=== PATIENT | female | born 1970 | race Caucasian/White ===

== ENCOUNTER → 2019-04-03 18:18 | Outpatient (CLI) | payer BC, SELFPAY ==
--- NOTE | ~2019-04-03 | MM_ITS ---
EXAMINATION: MM screening [place] BI w allison HISTORY: Screening mammogram TECHNIQUE: Craniocaudal and mediolateral oblique 3-D tomosynthesis images were obtained and synthetic 2-D images were generated. CAD analysis was submitted and interpreted. COMPARISON: 09/20/2017 bilateral digital screening mammogram 09/21/2016 diagnostic left digital mammogram and limited left breast ultrasound 09/04/2016, 08/30/2015 bilateral digital screening mammogram examinations BREAST PARENCHYMAL COMPOSITION: There are scattered areas of fibroglandular density. FINDINGS: There is no evidence of suspicious mass, calcification, or architectural distortion to sugg est malignancy in either breast. There has been no suspicious interval change. IMPRESSION: 1. No mammographic evidence of malignancy. 2. Recommend routine screening mammography in one year. BI-RADS Category 1: Negative Reviewed, dictated and finalized at location A. PORTFOLIO MANAGER
== END ==
PROVIDERS: Visit Provider Obstetrics & Gynecology
DX: Z12.31 Encounter for screening mammogram for malignant neoplasm of breast (principal)
CPT/HCPCS: 77063; 77067

== ENCOUNTER 2019-10-09 06:50 | Emergency (ER) | payer BC, SELFPAY ==
--- NOTE | ~2019-10-09 | XR_ITS ---
EXAMINATION: XR chest 1V portable INDICATION: Shortness of breath, COVID 19 positive. TECHNIQUE: Portable AP chest at 0744 hours COMPARISON: None available FINDINGS: There are minimal airspace opacities of the left lung base. No pleural effusion or pneumoth orax is identified. The cardiomediastinal silhouette is normal. IMPRESSION: 1. Minimal left basilar airspace opacity, consistent with history of COVID 19 pneumonia. Reviewed, dictated and finalized at location A. IMPRESSION: 1. Minimal left basilar airspace opacity, consistent with history of COVID 19 p neumonia.
[2019-10-09 06:59] VITALS: BP 142/107; PULSE 91; RESP 16; TEMP 37.2; O2SAT 93
[2019-10-09 07:01] VITALS: PULSE 91
--- NOTE | 2019-10-09 07:27 | ECG_ITS ---
Measurements Intervals [place] Rate: 87 P: 22 OK: 151 QRS: 17 QRSD: 93 T: 30 QT: 367 QTc: 443 Interpretive Statements SINUS RHYTHM NONSPECIFIC T-WAVE ABNORMALITY- INFERIOR LEADS BORDERLINE ECG Electronically Signed On 10-09-2019 8:05:53 CDT by Carlos Cloud D.O.
--- NOTE | 2019-10-09 07:53 | PC.NURSE ---
Resp in room.
[2019-10-09 07:54] VITALS: BP 124/94; PULSE 96; RESP 22; O2SAT 100
[2019-10-09 07:58] LABS: Alveolar/Arterial O2 Gradient 26.2 mmHg; Base Excess ABG 2.2 mEq/l (+/-2.0); Carboxyhemoglobin 0.4 % THb (0-2.0); Fractional Inspired Oxygen 21 %; HCO3 ABG 24.2 mEq/l (22.0-26.0); Methemoglobin ABG 0.1 %THb (0-1.5); Oxygen Content ABG 18.9 %vol (16.0-22.0); Oxygen Saturation ABG 97.5 % (95.0-100.0); Oxyhemoglobin 96.4 % THb (90.0-100.0); PCO2 ABG 30.3 mmHg (35.0-45.0); PO2 ABG 87.2 mmHg (80.0-100.0); PO2 FiO2 Ratio Arterial Blood 4.15 %; Reduced Hemoglobin 3.1 %THb (0-5.0); Total Hemoglobin 13.9 g/dL (12.0-18.0)
[2019-10-09 07:59] LABS: Device ROOM AIR; Modified Allen's Test Pass; Site Drawn RIGHT RADIAL; pH ABG 7.521 (7.350-7.450)
[2019-10-09 08:15] LABS: Eosinophils Percent Auto 0.3 % (0-4.4); Hematocrit 39.1 % (37.0-47.0); Hemoglobin 13.4 g/dL (12.0-15.0); Immature Granulocyte Absolute 0.01 K/mm3 (0.00-0.031); Immature Granulocyte Percent A 0.3 % (0-0.5); Lymphocytes Absolute Auto 1.33 K/mm3 (0.9-3.2); Lymphocytes Percent Auto 33.8 % (18.3-44.2); Mean Corpuscular HGB Conc 34.3 g/dl (32-36); Mean Corpuscular Hemoglobin 31.8 pg (26-34); Mean Corpuscular Volume 92.7 fl (80-100); Mean Platelet Volume 10.6 fl (7.4-10.4); Monocytes Absolute Auto 0.3 K/mm3 (0.1-0.6); Monocytes Percent Auto 7.1 % (2.6-8.5); Neutrophils Absolute Auto 2.3 K/mm3 (1.3-6.7); Neutrophils Percent Auto 58.5 % (45.5-73.1); Platelet Count Result 190 k/mm3 (150-375); Red Blood Count 4.22 M/mm3 (4.2-5.4); Red Cell Distribution Width 13.4 % (11.5-14.5); White Blood Count 3.9 K/mm3 (4.5-10.0)
[2019-10-09 08:27] LABS: INR 0.9
[2019-10-09 08:28] LABS: Partial Thromboplastin Time 27.5 SECONDS (22.3-36.8)
--- NOTE | 2019-10-09 08:28 | ED.SOB ---
HPI - SOB/Dyspnea General Chief Complaint: Shortness of Breath/Dyspnea Stated Complaint: SOB, COVID+ Time Seen by Provider: 10/09/19 07:03 Source: patient Mode of arrival: ambulatory Limitations: no limitations History of Present Illness HPI Narrative: This patient is a 49 year old with history of hypertension, anxiety who presents for evaluation shortness of breath. Patient was tested for COVID on Tuesday for complaint of a few days of fever and fatigue. Her results have returned as positive and patient states last night she developed shortness of breath. She states she could not sleep last night because she was afraid she would lay down and stop breath. She denies shortness of breath today. She denies nausea, vomiting, diarrhea, chest pain, sore throat or runny nose. Her last fever was yesterday. She also reports a mild cough. Her main complaint is that she needs something for anxiety because she has not taken her effexor or abilify in 2 days. MD elicited complaint: shortness of breath Related Data Home Medications Medication Instructions Recorded Confirmed fesoterodine [Toviaz] 8 mg PO DAILY 02/04/19 10/03/19 venlafaxine 300 mg PO DAILY 02/04/19 10/03/19 aripiprazole 10 mg tablet 10 mg PO DAILY 08/28/19 10/03/19 Allergies Allergy/AdvReac Type Severity Reaction Status Date / Time No Known Allergies Allergy Verified 10/09/19 08:36 Review of Systems Review of Systems: All systems reviewed & are unremarkable except as noted in HPI and below Constitutional: Constitutional: Denies chills and Reports fever(s) ENT: Denies nasal congestion and Denies sore throat Respiratory: Respiratory: Reports cough, Reports dyspnea and Denies wheezing Gastrointestinal: Gastrointestinal: Denies abdominal pain, Denies nausea and Denies vomiting [facility] Past Medical History Medical History Allergies Colitis 03/2018 Cyst of skin Depression Hematochezia Hypertension Surgical History Surgical History H/O section 2003 H/O elbow surgery Right History of radical hysterectomy 09/2016 Family History Family History (Updated 10/03/19 @ 08:00 by Tracey Elder [facility]) Mother Hypertension Cerebrovascular accident Carcinoma of colon Father Malignant neoplasm of prostate Social History Social History (Updated 10/03/19 @ 08:00 by Tracey Elder [facility]) Smoking status: Never smoker Alcohol intake: current Exam Narrative: Exam Narrative: GENERAL: Well-appearing, well-nourished, and in no acute distress. HEAD: Normocephalic, atraumatic EYES: PERRLA and EOMI, conjunctiva clear without discharge EARS: TM's clear bilaterally without erythema or dullness NOSE: Nares clear, no rhinorrhea or epistaxis THROAT:Mucous membranes moist, Oropharynx normal without erythema, exudate, peritonsillar swelling or fluctuance NECK: Supple, without lymphadenopathy or mass RESPIRATORY: No respiratory distress, Airway patent, Respirations non-labored, Clear to auscultation without rales, rhonchi or wheeze HEART: Regular rate and rhythm. No murmur heard. Normal peripheral pulses. ABDOMEN: Soft, nontender, nondistended, normal active bowel sounds. No masses. No rebound or guarding, No organomegaly. EXTREMITIES: No edema, normal strength with full range of motion. SKIN: Warm, dry, normal color without rash NEURO: Alert and oriented x3. CN 2-12 grossly intact. No focal deficits. PSYCH: Normal mood and affect. Course Reevaluation(s) Reevaluation #1: I have discussed with patient that oxygen is normal without oxygen. She will be discharged with antibiotics. She was given return precautions. Date: 10/09/19 Time: 09:01 Consultations Consultation #1: I discussed with Dr. lundberg and he is agreeable to treatment plan. Date: 10/09/19 Time: 09:01 Vital Signs Vital signs: Vital Signs Temperature 98.9 F
[2019-10-09 08:32] LABS: Alanine Aminotransferase 35 U/L (4-35); Albumin Level 3.9 g/dL (3.5-5.1); Alkaline Phosphatase 79 U/L (38-126); Anion Gap 11.7 mmol/L (7-16); Aspartate Amino Transferase 39 U/L (14-36); Bilirubin,Total 0.4 mg/dL (0.2-1.3); Blood Urea Nitrogen 14 mg/dL (7-17); CRP 1.7 mg/dL (<1.0); Calcium 8.5 mg/dL (8.4-10.2); Carbon Dioxide 24 mmol/L (22-30); Chloride 104 mmol/L (98-107); Estimated CRCL calculation 113 ml/min; Estimated Glomerular Filt Rate > 60; Glucose 113 mg/dL (65-105); Lactate Dehydrogenase 528 U/L (313-618); Magnesium 1.5 mg/dL (1.6-2.3); Potassium 3.7 mmol/L (3.4-5.0); Sodium 136 mmol/L (137-145)
[2019-10-09 08:37] LABS: D Dimer 0.27 ug/mL (<0.48)
--- NOTE | 2019-10-09 08:48 | PC.NURSE ---
Called pharm and left VM for PO medication.
[2019-10-09] MEDS: hydrOXYzine pamoate 25 MG CAPSULE 50 MG PO (08:49)
[2019-10-09] MEDS: ARIPiprazole 10 MG TABLET PO (08:49)
[2019-10-09 09:23] VITALS: BP 142/98; PULSE 84; RESP 14; O2SAT 100
[2019-10-09 09:51] VITALS: BP 142/98; PULSE 84; RESP 17; O2SAT 100
== END 2019-10-09 09:28 | disposition home or self-care (01) ==
LOC: ANHED 09:14
PROVIDERS: Emergency Provider General Practice; PCP Internal Medicine
DX: U07.1 COVID-19 (principal); F41.9 Anxiety disorder, unspecified; F32.9 Major depressive disorder, single episode, unspecified; I10 Essential (primary) hypertension
CPT/HCPCS: 36415; 36600; 71045; 80053; 82375; 82728; 82805; 83050; 83615; 83735; 85025; 85380; 85610; 85730; 86140; 93005; 99283; A9270

== ENCOUNTER → 2020-06-10 12:36 | Outpatient (CLI) | payer BC, SELFPAY ==
--- NOTE | ~2020-06-10 | MM_ITS ---
EXAMINATION: MM screening [facility] BI w allison HISTORY: Screening mammogram TECHNIQUE: Craniocaudal and mediolateral oblique 3-D tomosynthesis images were obtained and synthetic 2-D images were generated. CAD analysis was submitted and interpreted. COMPARISON: 04/03/2019, 09/20/2017 bilateral digital screening mammogram examinations BREAST PARENCHYMAL COMPOSITION: There are scattered areas of fibroglandular density. FINDINGS: There is architectural distortion in the mid to upper outer right breast. Diagnostic right mammogram and right breast ultrasound examination are recommended. Otherwise no suspicious mass, architectural distortion, malignant calcification, skin thickening or r etraction of either breast is evident. IMPRESSION: 1. Architectural distortion, right breast 2. Diagnostic right mammogram and right breast ultrasound examination are recommended BI-RADS Category 0: Incomplete: Needs additional imaging evaluation. Reviewed, dictated and finalized at location A. IMPRESSION: 1. Architectural distortion, right breast 2. Diagnostic right mammogram and right breast ultrasound examination are recom mended BI-RADS Category 0: Incomplete: Needs additional imaging evaluation.
== END ==
PROVIDERS: PCP Internal Medicine; Visit Provider Obstetrics & Gynecology
DX: Z12.31 Encounter for screening mammogram for malignant neoplasm of breast (principal); R92.8 Other abnormal and inconclusive findings on diagnostic imaging of breast
CPT/HCPCS: 77063; 77067

== ENCOUNTER → 2020-07-02 07:48 | Outpatient (CLI) | payer BC, SELFPAY ==
--- NOTE | ~2020-07-02 | MMUS_ITS ---
EXAMINATION: MM diagnostic mammo unilat RT, US breast RT limited HISTORY: Architectural distortion reported in mid to upper outer right breast on 06/10/2020 screening m ammogram TECHNIQUE: Additional 3-D tomosynthesis images of the right breast were performed and synthetic 2-D i mages were generated. CAD analysis was submitted and interpreted. High resolution upper outer and low er-outer right breast ultrasound was performed. COMPARISON: 06/10/2020, 04/03/2019 bilateral digital screening mammogram examinations FINDINGS: MAMMOGRAPHIC FINDINGS: No reproducible mass lesion or architectural distortion is evident on these supplemental mammographic views. ULTRASOUND: There is a 2 x 4.4 x 4.9 mm sonolucency consistent with small cyst at 11:00 5 cm from the nipple. No other significant sonographic finding is noted in the upper outer or lower outer quadrants of the right breast. No suspicious mass lesion or shadowing. IMPRESSION: 1. No mammographic evidence of malignancy 2. Routine annual mammographic screening is recommended BI-RADS Category 2: Benign finding(s). Reviewed, dictated and finalized at location A. IMPRESSION: 1. No mammographic evidence of malignancy 2. Routine annual mammographic screening is recommended BI-RADS Category 2: Benign finding(s).
== END ==
PROVIDERS: PCP Internal Medicine; Visit Provider Obstetrics & Gynecology
DX: R92.8 Other abnormal and inconclusive findings on diagnostic imaging of breast (principal)
CPT/HCPCS: 76642; 77065

== ENCOUNTER 2021-01-19 00:03 | Day surgery (SDC) | payer BC, SELFPAY ==
[2020-12-01 11:49] VITALS: BMI 25.9
[2021-01-05 13:59] VITALS: BMI 25.9
--- NOTE | 2021-01-19 07:14 | PM.HPGS ---
History of Present Illness History of Present Illness Consent: Risks, benefits, and alternatives have been discussed and questions answered. Patient agrees to proceed with procedure. Chief complaint: neoplasm screening Narrative: Maite Jones is a 50 year old female referred for colon cancer screening. Review of Systems Review of Systems: All systems reviewed & are unremarkable except as noted in HPI and below PMFSH Past Medical History Medical History Allergies Anxiety Chronic GERD Colitis 03/2018 Cyst of skin Depression Hematochezia Hypertension Surgical History Surgical History H/O section 2003 H/O elbow surgery Right History of radical hysterectomy 09/2016 Family History Family History Mother Hypertension Cerebrovascular accident Carcinoma of colon Father Malignant neoplasm of prostate Social History Social History Social History: Caffeine-none Smoking status: Never smoker Alcohol intake: current Drinks per week: 2 Alcohol use details: occasional Substance use: never Substance use type: does not use Living arrangements: with family Spiritual care concerns: No Meds Home Medications and Allergies Home Medications Medication Instructions Recorded Confirmed Type fesoterodine [Toviaz] 8 mg PO DAILY 02/04/19 01/19/21 History aripiprazole 10 mg tablet 10 mg PO DAILY 08/28/19 01/19/21 History omeprazole 40 mg capsule,delayed 40 mg PO DAILY #90 cap 09/03/19 01/19/21 Rx release bupropion HCl 300 mg 24 hr tablet, 300 mg PO QAM 10/01/20 01/19/21 History extended release phentermine 37.5 mg tablet 37.5 mg PO DAILY #30 tablet 10/01/20 01/19/21 Rx hydrochlorothiazide 12.5 mg tablet 12.5 mg PO DAILY #90 tablet 12/11/20 01/19/21 Rx lisinopril 20 mg tablet 20 mg PO DAILY #90 tablet 12/11/20 01/19/21 Rx metoprolol tartrate 50 mg tablet 50 mg PO DAILY #90 tablet 12/11/20 01/19/21 Rx Allergies Allergy/AdvReac Type Severity Reaction Status Date / Time No Known Allergies Allergy Verified 01/19/21 09:35 Exam Const: General: alert Orientation/consciousness: patient oriented x3 Resp: Auscultation: clear to auscultation bilaterally Cardio: Rhythm: regular rhythm GI: GI Palp: Yes Soft to palpation and No Tenderness to palpation present (GI) Neuro: General: patient oriented x3 Assessment and Plan Assessment and plan (1) Screening for colon cancer: Code(s): Z12.11 - Encounter for screening for malignant neoplasm of colon Status: Acute Assessment and Plan: Colonoscopy with possible biopsy or polypectomy or cautery or injection of substances.
--- NOTE | 2021-01-19 08:38 | P.PNAN_ITS ---
Anes - Initial Pre Proc Eval Procedure: Operation Date: 01/19/21 10:30 Proposed Procedures p Screening Colonoscopy - Moise Quispe MD Date/Time: 01/19/21 08:38 Surgeon: Moise Quispe MD Pre Op Diagnosis: neoplasm screening Patient Data Age: 50 Gender: F Height: 1.7 m Weight: 75 kg Allergies Allergy/AdvReac Type Severity Reaction Status Date / Time No Known Allergies Allergy Verified 01/19/21 09:35 Home Medications Medication Instructions Recorded Confirmed Type fesoterodine [Toviaz] 8 mg PO DAILY 02/04/19 01/19/21 History aripiprazole 10 mg tablet 10 mg PO DAILY 08/28/19 01/19/21 History omeprazole 40 mg capsule,delayed 40 mg PO DAILY #90 cap 09/03/19 01/19/21 Rx release bupropion HCl 300 mg 24 hr tablet, 300 mg PO QAM 10/01/20 01/19/21 History extended release phentermine 37.5 mg tablet 37.5 mg PO DAILY #30 tablet 10/01/20 01/19/21 Rx hydrochlorothiazide 12.5 mg tablet 12.5 mg PO DAILY #90 tablet 12/11/20 01/19/21 Rx lisinopril 20 mg tablet 20 mg PO DAILY #90 tablet 12/11/20 01/19/21 Rx metoprolol tartrate 50 mg tablet 50 mg PO DAILY #90 tablet 12/11/20 01/19/21 Rx Patient hx anesthesia problems: none Family hx anesthesia problems: none Results Review: All pre-operative results and documents have been reviewed as part of the pre-operative evaluation. [facility] Past Medical History Medical History Allergies Anxiety Chronic GERD Colitis 03/2018 Cyst of skin Depression Hematochezia Hypertension Surgical History Surgical History H/O section 2003 H/O elbow surgery Right History of radical hysterectomy 09/2016 Family History Family History Mother Hypertension Cerebrovascular accident Carcinoma of colon Father Malignant neoplasm of prostate Social History Social History Social History: Caffeine-none Smoking status: Never smoker Alcohol intake: current Drinks per week: 2 Alcohol use details: occasional Substance use: never Substance use type: does not use Living arrangements: with family Spiritual care concerns: No Anes - Eval Final PreProcedure Day of Procedure 01/19/21 08:38 Patient weight: overweight Heart: regular rate and rhythm Lungs: clear to auscultation and normal air movement Airway: Mallampati scale class II Neurological: alert and oriented Last oral intake: >/= 8 hours ASA classification: II Emergent: no Anesthetic plan: proceed Anesthesia type and monitoring: general GIVS Results Review: All pre-operative results and documents have been reviewed as part of the pre-operative evaluation. Informed Consent: The patient's anesthetic plan and its attendant risks and benefits were discussed with the patient/family/POA. Questions were solicited and answers provided to the satisfaction of the patient/family/POA.
[2021-01-19 09:37] VITALS: BMI 29.8
[2021-01-19] MEDS: LACTATED RINGERS 1,000 ML 150 ML IV CONT (09:44)
[2021-01-19 09:45] VITALS: BP 115/76; PULSE 68; RESP 16; TEMP 36.7; O2SAT 98
[2021-01-19 10:42] VITALS: BP 101/66; PULSE 64; RESP 17; O2SAT 98
[2021-01-19 10:52] VITALS: BP 110/61; PULSE 68; RESP 16; O2SAT 100
[2021-01-19 11:02] VITALS: BP 110/66; PULSE 63; RESP 15; O2SAT 100
== END 2021-01-19 11:09 | disposition home or self-care (01) ==
PROVIDERS: PCP Internal Medicine; Visit Provider Internal Medicine Gastroenterology
PROC: 0DJD8ZZ Inspection of Lower Intestinal Tract, Via Natural or Artificial Opening Endoscopic (ICD-10-PCS; CPT 45378; principal; 2021-01-19 10:30)
DX: Z12.11 Encounter for screening for malignant neoplasm of colon (principal); K21.9 Gastro-esophageal reflux disease without esophagitis; I10 Essential (primary) hypertension; F41.8 Other specified anxiety disorders
CPT/HCPCS: 45378; J2704; J7120

== ENCOUNTER → 2021-10-06 07:22 | Outpatient (CLI) | payer BC, SELFPAY ==
--- NOTE | ~2021-10-06 | MM_ITS ---
EXAMINATION: MM screening [facility] BI w allison HISTORY: Screening TECHNIQUE: Craniocaudal and mediolateral oblique 3-D tomosynthesis images were obtained and synthetic 2-D images were generated. CAD analysis was submitted and interpreted. COMPARISON: Comparison to multiple prior studies sequentially, with oldest reviewed study dated 03/2016. BREAST PARENCHYMAL COMPOSITION: Breast composed of scattered areas of fibroglandular density FINDINGS: There are developing bilateral breast asymmetries in the lower outer quadrant of the right breast and upper outer quadrant of the left breast. IMPRESSION: 1. Developing bilateral breast asymmetries. 2. Additional mammographic views and possible breast ultrasound are recommended. BI-RADS Category 0: Incomplete: Needs additional imaging evaluation. Reviewed, dictated and finalized at location A. IMPRESSION: 1. Developing bilateral breast asymmetries. 2. Additional mammographic views and possible breast ultrasound are recommended . BI-RADS Category 0: Incomplete: Needs additional imaging evaluation.
== END ==
PROVIDERS: PCP Internal Medicine; Visit Provider Obstetrics & Gynecology
DX: Z12.31 Encounter for screening mammogram for malignant neoplasm of breast (principal); R92.8 Other abnormal and inconclusive findings on diagnostic imaging of breast
CPT/HCPCS: 77063; 77067

== ENCOUNTER 2021-10-15 08:50 | Outpatient (CLI) | payer BC, SELFPAY ==
--- NOTE | ~2021-10-15 | MM_ITS ---
EXAMINATION: MM diagnostic [facility] BI w allison HISTORY: Bilateral breast asymmetries on screening mammogram TECHNIQUE: Additional 3-D tomosynthesis images of the breasts were performed and synthetic 2-D images were generated. CAD analysis was submitted and interpreted. COMPARISON: 10/06/2021, 07/02/2020, 06/10/2020, 04/03/2019 FINDINGS: There is a return to baseline fibroglandular appearance with spot compression of the breast s in the areas questioned on screening mammogram. IMPRESSION: 1. No mammographic evidence of malignancy. 2. Recommend routine screening mammography in one year. BI-RADS Category 1: Negative Reviewed, dictated and finalized at location A.
== END 2021-10-15 08:51 ==
PROVIDERS: PCP Internal Medicine; Visit Provider Obstetrics & Gynecology
DX: R92.8 Other abnormal and inconclusive findings on diagnostic imaging of breast (principal)
CPT/HCPCS: 77062; 77066; G0279

== ENCOUNTER 2022-08-23 11:36 | Outpatient (CLI) | payer BC, SELFPAY ==
[2022-08-23 14:20] LABS: Basophils Percent Auto 0.4 % (0.2-1.2); Eosinophils Absolute Auto 0.1 K/mm3 (0-0.3); Eosinophils Percent Auto 1.1 % (0-4.4); Hematocrit 40.2 % (37.0-47.0); Hemoglobin 13.6 g/dL (12.0-15.0); Immature Granulocyte Absolute 0.03 K/mm3 (0.00-0.031); Immature Granulocyte Percent A 0.3 % (0-0.5); Lymphocytes Absolute Auto 2.59 K/mm3 (0.9-3.2); Lymphocytes Percent Auto 28.9 % (18.3-44.2); Mean Corpuscular HGB Conc 33.8 g/dl (32-36); Mean Corpuscular Hemoglobin 31.8 pg (26-34); Mean Corpuscular Volume 93.9 fl (80-100); Mean Platelet Volume 10.5 fl (7.4-10.4); Monocytes Absolute Auto 0.5 K/mm3 (0.1-0.6); Monocytes Percent Auto 5.5 % (2.6-8.5); Neutrophils Absolute Auto 5.7 K/mm3 (1.3-6.7); Neutrophils Percent Auto 63.8 % (45.5-73.1); Platelet Count Result 274 k/mm3 (150-375); Red Blood Count 4.28 M/mm3 (4.2-5.4); Red Cell Distribution Width 12.6 % (11.5-14.5)
[2022-08-23 15:41] LABS: Creatinine Urine 115.7 mg/dL
[2022-08-23 15:45] LABS: Microalbumin Urine Random 8.1 mg/L (0-16.7)
[2022-08-23 16:15] LABS: Alanine Aminotransferase 22 U/L (6-35); Albumin Level 3.9 g/dL (3.5-5.1); Alkaline Phosphatase 46 U/L (38-126); Anion Gap 3 mmol/L (8-16); Aspartate Amino Transferase 25 U/L (14-36); Blood Urea Nitrogen 12 mg/dL (7-17); Carbon Dioxide 32 mmol/L (22-30); Chloride 101 mmol/L (98-107); Cholesterol 152 mg/dL (0-200); Estimated Glomerular Filt Rate > 60; Glucose 89 mg/dL (65-110); HDL Direct 39 mg/dL; Potassium 4.4 mmol/L (3.4-5.0); Sodium 136 mmol/L (137-145); Triglycerides 176 mg/dL (<150)
[2022-08-23 16:26] LABS: LDL Cholesterol Direct 84 mg/dL
== END 2022-08-23 11:37 | disposition home or self-care (01) ==
LOC: ANHGOSHLAB 11:37
PROVIDERS: PCP Internal Medicine; Visit Provider Nurse Practitioner
DX: E55.9 Vitamin D deficiency, unspecified (principal); R53.83 Other fatigue; I10 Essential (primary) hypertension
CPT/HCPCS: 36415; 80053; 80061; 82043; 82306; 85025

== ENCOUNTER 2022-09-09 07:19 | Emergency (ER) | payer BC, SELFPAY ==
[2022-09-09] VITALS (10 sets, daily range): BP systolic 151–179; BP diastolic 70–91; PULSE 60–71; RESP 12–18; TEMP 36.6; O2SAT 97–100
--- NOTE | ~2022-09-09 | XR_ITS ---
EXAMINATION: XR chest 1V portable DATE: 09/09/2022 08:12 INDICATION: Hypertension TECHNIQUE: frontal view of the chest was obtained. COMPARISON: Chest radiograph dated 10/09/2019 FINDINGS: The lungs remain clear with no focal airspace opacities, pulmonary edema, pleural effusion or pneumot horax. The cardiomediastinal silhouette is normal. Visualized bones and soft tissues are unremarkable . IMPRESSION: 1. No acute cardiopulmonary disease. Reviewed, dictated and finalized at location L.
--- NOTE | 2022-09-09 07:29 | ECG_ITS ---
Measurements Intervals [place] Rate: 63 P: 23 RI: 159 QRS: 12 QRSD: 90 T: 17 QT: 418 QTc: 428 Interpretive Statements SINUS RHYTHM NORMAL ECG NO PREVIOUS ECG AVAILABLE FOR COMPARISON Electronically Signed On 09-09-2022 8:12:22 CDT by Carlos Cloud D.O.
--- NOTE | 2022-09-09 07:58 | ED.GENADULT ---
HPI - General Adult General Chief complaint: Recheck/Abnormal Lab/Rx Stated complaint: HTN Time Seen by Provider: 09/09/22 07:21 History of Present Illness HPI narrative: 52-year-old female with history of hypertension presenting to the emergency department for evaluation of elevated blood pressures. Patient states that her blood pressure typically runs around 130-140 systolic and yesterday it was running in the 160s. Patient did take her blood pressure medications this morning and states that her blood pressure was still running in the 160s. Patient states she does have some lower extremity edema and some associated lethargy. Patient states that she has been following a healthy diet and did not have Related Data Home Medications Medication Instructions Recorded Confirmed aripiprazole 15 mg tablet (Abilify) 15 mg PO HS 09/09/22 09/09/22 bupropion HCl 300 mg 24 hr tablet, 300 mg PO QAM 09/09/22 09/09/22 extended release (Wellbutrin XL) hydrochlorothiazide 12.5 mg tablet 12.5 mg PO DAILY 09/09/22 09/09/22 lisinopril 20 mg tablet 20 mg PO DAILY 09/09/22 09/09/22 metoprolol succinate 50 mg 50 mg PO DAILY 09/09/22 09/09/22 tablet,extended release 24 hr omeprazole 40 mg capsule,delayed 40 mg PO DAILY 09/09/22 09/09/22 release paroxetine HCl 10 mg tablet (Paxil) 10 mg PO QAM 09/09/22 09/09/22 solifenacin 10 mg tablet (Vesicare) 10 mg PO DAILY 09/09/22 09/09/22 Allergies Allergy/AdvReac Type Severity Reaction Status Date / Time No Known Allergies Allergy Verified 09/09/22 07:29 Review of Systems Review of Systems: All systems reviewed & are unremarkable except as noted in HPI and below Exam Narrative: APPEARANCE: Well appearing, no pain, no distress, well-nourished. HEAD: normocephalic, atraumatic. EYES: PERRLA/EOMI, conjunctivae clear. NOSE: Normal no drainage NECK: Supple. No adenopathy, no masses. RESPIRATORY: Airway patent, respirations nonlabored. Clear to auscultation bilaterally, no rales, rhonchi, wheezing. CARDIOVASCULAR: Regular rate and rhythm without murmurs rubs or gallops. ABDOMINAL: Soft, nontender, nondistended, normal bowel sounds MUSCULOSKELETAL: Moves all extremities. Strength/ROM intact, nonpitting edema, No calf tenderness. NEURO: Alert. Cranial nerves II through XII intact. Grossly intact SKIN: Warm, dry. Normal Color Course Course Emergency Course: 52-year-old female presented the ED for evaluation of hypertension. Patient did take her blood pressure medications this morning and her blood pressure did improve without further treatment in the ED. Patient was afebrile with no leukocytosis and a stable hemoglobin. Patient had no significant abnormalities on her CMP. Patient did have mild lower extremity edema that was nonpitting. Patient had a mildly elevated BNP of 319. Patient denied any urinary symptoms but patient did have leuk esterase nitrite positive urine with bacteria. Urine culture was ordered. Chest x-ray showed no acute cardiopulmonary abnormality. With patient's blood pressure improving during her stay in the ED and no other significant normalities. Patient was advised to follow a low-sodium diet and patient was treated with a dose of IV Lasix. Urine culture is pending. Patient was encouraged of close follow-up with her primary care physician. All questions and concerns were addressed. Patient was well-appearing at time of discharge. Vital Signs Vital signs: Vital Signs Temperature 97.9 F 09/09/22 07:23 Pulse Rate 67 09/09/22 07:23 Respiratory Rate 15 09/09/22 07:23 Blood Pressure 179/91 H 09/09/22 07:23 Pulse Oximetry 98 09/09/22 07:23 Oxygen Delivery Room Air 09/09/22 07:23 Temperature 97.9 F 09/09/22 07:23 Pulse Rate 60 09/09/22 09:26 Respiratory Rate 15 09/09/22 09:26 Blood Pressure 164/70 H 09/09/22 09:26 Pulse Oximetry 100 09/09/22 09:26 Oxygen Delivery Room Air 09/09/22 07:23 Medical Decision Making Differe
[2022-09-09 08:05] LABS: Basophils Percent Auto 0.6 % (0.2-1.2); Eosinophils Absolute Auto 0.1 K/mm3 (0-0.3); Eosinophils Percent Auto 1.9 % (0-4.4); Hematocrit 35.8 % (37.0-47.0); Hemoglobin 12.4 g/dL (12.0-15.0); Immature Granulocyte Absolute 0.02 K/mm3 (0.00-0.031); Immature Granulocyte Percent A 0.3 % (0-0.5); Lymphocytes Percent Auto 24.3 % (18.3-44.2); Mean Corpuscular HGB Conc 34.6 g/dl (32-36); Mean Corpuscular Hemoglobin 32.5 pg (26-34); Mean Corpuscular Volume 93.7 fl (80-100); Mean Platelet Volume 10.1 fl (7.4-10.4); Monocytes Absolute Auto 0.4 K/mm3 (0.1-0.6); Monocytes Percent Auto 5.9 % (2.6-8.5); Neutrophils Absolute Auto 4.7 K/mm3 (1.3-6.7); Platelet Count Result 255 k/mm3 (150-375); Red Blood Count 3.82 M/mm3 (4.2-5.4); Red Cell Distribution Width 13.5 % (11.5-14.5)
[2022-09-09 08:13] LABS: Alanine Aminotransferase 22 U/L (6-35); Albumin Level 3.8 g/dL (3.5-5.1); Alkaline Phosphatase 45 U/L (38-126); Anion Gap 6 mmol/L (8-16); Aspartate Amino Transferase 20 U/L (14-36); Bilirubin,Total 0.9 mg/dL (0.2-1.3); Blood Urea Nitrogen 10 mg/dL (7-17); Calcium 8.7 mg/dL (8.4-10.2); Carbon Dioxide 28 mmol/L (22-30); Chloride 102 mmol/L (98-107); Estimated CRCL calculation 95 ml/min; Estimated Glomerular Filt Rate > 60; Glucose 100 mg/dL (65-110); Potassium 3.8 mmol/L (3.4-5.0); Sodium 136 mmol/L (137-145)
[2022-09-09 08:22] LABS: NT Pro B Type Natriuretic Pept 319 pg/mL (19.9-100)
[2022-09-09 08:51] LABS: Appearance Urine Clear (Clear); Bacteria Urine 4+ /hpf; Bilirubin Urine Negative (Negative); Blood Urine Negative (Negative); Color Urine Yellow (Yellow); Glucose Urine UA Negative (Negative); Ketones Urine Negative (Negative); Leukocyte Esterase Ur 1+ LEU/UL (Negative); Nitrate Urine Positive (Negative); Non Pathogenic Casts 0-2; Protein Urine Negative (Negative); RBC Urine 0-2 /hpf (0-2); Specific Grav Ur 1.009 (1.001-1.035); Squamous Epithelial Cell Urine None seen /hpf (Few)
[2022-09-09 08:53] LABS: Add Urine Microscopic? YES
[2022-09-09] MEDS: FUROSEMIDE INJ 40 MG/4 ML VIAL IV PUSH (09:20)
== END 2022-09-09 09:27 | disposition home or self-care (01) ==
PROVIDERS: Emergency Provider Emergency Medicine; PCP Internal Medicine
DX: I10 Essential (primary) hypertension (principal); R60.9 Edema, unspecified
CPT/HCPCS: 36415; 71045; 80053; 81001; 83880; 85025; 87077; 87086; 87186; 93005; 96374; 99284; J1940

== ENCOUNTER → 2023-01-20 14:39 | Outpatient (CLI) | payer OTHER, SELFPAY ==
--- NOTE | ~2023-01-20 | MM_ITS ---
EXAMINATION: MM screening [place] BI w allison HISTORY: Screening mammogram TECHNIQUE: Craniocaudal and mediolateral oblique 3-D tomosynthesis images were obtained and synthetic 2-D images were generated. CAD analysis was submitted and interpreted. COMPARISON: 10/15/2021, 10/26/2021, 07/02/2020, 06/10/2020 BREAST PARENCHYMAL COMPOSITION: There are scattered areas of fibroglandular density. FINDINGS: No suspicious mass, calcification, or architectural distortion are identified in either kaz ast to suggest malignancy. There has been no suspicious interval change. IMPRESSION: 1. No mammographic evidence of malignancy. 2. Recommend routine screening mammography in one year. BI-RADS Category 1: Negative Reviewed, dictated and finalized at location A. ER ROOM SUPERVISOR
== END ==
PROVIDERS: PCP Obstetrics & Gynecology; Visit Provider Obstetrics & Gynecology
DX: Z12.31 Encounter for screening mammogram for malignant neoplasm of breast (principal)
CPT/HCPCS: 77063; 77067

== ENCOUNTER 2023-12-16 16:11 | Emergency (ER) | payer OTHER, SELFPAY ==
[2023-12-16 16:23] VITALS: BP 114/70; PULSE 64; RESP 18; TEMP 36.6; O2SAT 100
--- NOTE | 2023-12-16 16:24 | ED.URI ---
HPI - URI/Sore Throat General Chief Complaint: Upper Respiratory Infection Stated Complaint: sore throat Time Seen by Provider: 12/16/23 16:24 Source: patient, RN notes reviewed and old records reviewed Mode of arrival: ambulatory Limitations: no limitations History of Present Illness HPI Narrative: patient presents with complaints of left-sided ear and throat pain. She reports symptoms have been present for almost 1 week. She has been taking Tylenol for her symptoms along with some Sudafed. She does report some associated runny nose and cough. She denies any fever, chills, sweats. She denies any injury or trauma. Denies any dental pain. Voices no other concerns or complaints at this time. Is not having any difficulty swallowing. No drooling or stridor noted Related Data Home Medications Medication Instructions Recorded Confirmed aripiprazole 10 mg tablet (Abilify) 10 mg PO DAILY 08/28/19 12/16/23 bupropion HCl 300 mg 24 hr tablet, 300 mg PO QAM 10/01/20 12/16/23 extended release (Wellbutrin XL) paroxetine HCl 10 mg tablet 10 mg PO DAILY 08/23/22 12/16/23 Allergies Allergy/AdvReac Type Severity Reaction Status Date / Time No Known Allergies Allergy Verified 12/16/23 16:34 Review of Systems Review of Systems: All systems reviewed & are unremarkable except as noted in HPI and below Constitutional: Constitutional: Reports no additional constitutional complaints ENT: Reports system reviewed and no additional complaints, except as documented, Reports as per HPI, Reports otalgia, Reports nasal discharge, Denies sinus pain, Denies sinus pressure and Reports sore throat Cardiovascular: Cardiovascular: Reports no additional cardiovascular complaints Respiratory: Respiratory: Reports no additional respiratory complaints and Reports cough Gastrointestinal: Gastrointestinal: Reports no additional gastrointestinal complaints [facility] Past Medical History Medical History Allergies Anxiety Chronic GERD Colitis 03/2018 Cyst of skin Depression Hematochezia Hypertension Surgical History Surgical History H/O section 2003 H/O elbow surgery Right History of radical hysterectomy 09/2016 Family History Family History Mother Hypertension Cerebrovascular accident Carcinoma of colon Father Malignant neoplasm of prostate Social History Social History Social History: Caffeine-none Smoking status: Never smoker Alcohol intake: current Drinks per week: 2 Alcohol use details: occasional Substance use: never Substance use type: does not use Lack of Transportation: No Lack of Food: Never True Current Housing: I Have Housing Concerned About Future Housing: No Difficulty Paying Gas/Electric Bills: No Difficulty Paying for Meds: No Currently Unemployed: No Education: High School Diploma/GED Difficulty w/ Childcare or Family Care: No Living arrangements: with family Spiritual care concerns: No Comments At the time of my signature, I reviewed and agree with the nursing past medical, surgical, social, and family history. There is no relevant family history pertinent to the patient complaint. Exam Const: General: cooperative, no acute distress, alert and awake Orientation/consciousness: oriented to person, oriented to place and oriented to time HENMT: Head: normal to inspection Ears: TM's normal bilaterally Mouth: Yes moist mucous membranes Throat: posterior oropharynx abnormal erythema Neck: Lymphatic: lymphadenopathy left anterior cervical single, large and tender Resp: Effort & Inspection: normal respiratory effort and able to speak in complete sentences Auscultation: clear to auscultation bilaterally, no crackles, no rales, no rhonchi and n
[2023-12-16 16:35] VITALS: BP 114/70; PULSE 64; RESP 18; TEMP 36.6; O2SAT 100
[2023-12-16 16:51] LABS: EDSTREPNEGPOS1 Negative (Negative)
== END 2023-12-16 16:53 | disposition home or self-care (01) ==
PROVIDERS: Emergency Provider Nurse Practitioner Family; PCP Internal Medicine
DX: I88.9 Nonspecific lymphadenitis, unspecified (principal); K21.9 Gastro-esophageal reflux disease without esophagitis; I10 Essential (primary) hypertension; F41.9 Anxiety disorder, unspecified; F32.A Depression, unspecified
CPT/HCPCS: 87081; 87880; 99213; G0463

== ENCOUNTER 2023-12-24 13:57 | Emergency (ER) | payer OTHER, SELFPAY ==
[2023-12-24 14:06] VITALS: BP 127/79; PULSE 73; RESP 18; TEMP 36.2; O2SAT 100
--- NOTE | 2023-12-24 14:06 | ED.GENADULT ---
HPI - General Adult General Chief complaint: Dental/Oral Stated complaint: strep symptoms Time Seen by Provider: 12/24/23 14:06 Source: patient Mode of arrival: ambulatory Limitations: no limitations History of Present Illness HPI narrative: 53-year-old female patient presents to the [facility] with complaints of mouth and left-sided throat and neck pain. Patient was seen in the urgent care last week and had a negative strep test and was diagnosed with lymphadenitis and was prescribed an antibiotic. Patient states she only took 2 days of the antibiotic and then stopped because she was still having pain and thought it was an allergic reaction. Patient went to her dentist to get her teeth checked out to make sure it was not her teeth and her dentist said that her teeth were fine there was no infection in the teeth. Patient states she followed up with her primary doctor about this as well and he prescribed her a different antibiotic but she did not take it. Patient is here again with same complaints stating still having mouth and neck/throat pain. Denies fevers, body aches or chills at this time. Related Data Home Medications Medication Instructions Recorded Confirmed bupropion HCl 300 mg 24 hr tablet, 150 mg PO QAM 10/01/20 12/24/23 extended release (Wellbutrin XL) paroxetine HCl 10 mg tablet 30 mg PO DAILY 08/23/22 12/24/23 atomoxetine 80 mg capsule 80 mg PO DAILY 12/24/23 12/24/23 chlorhexidine gluconate 0.12 % 1 applic mucous membrane TID 12/24/23 12/24/23 mouthwash solifenacin 10 mg tablet 10 mg PO DAILY 12/24/23 12/24/23 Allergies Allergy/AdvReac Type Severity Reaction Status Date / Time No Known Allergies Allergy Verified 12/24/23 14:01 Review of Systems Review of Systems: CONSTITUTIONAL: Denies fever, chills, or sweats. EYES: Denies visual changes, redness, or discharge. ENT: Denies rhinorrhea, congestion, Positive sore throat, denies otalgia. CARDIOVASCULAR: Denies chest pain, palpitations, or edema. RESPIRATORY: Denies cough or dyspnea. GASTROINTESTINAL: Denies abdominal pain, nausea, vomiting, or diarrhea. GENITOURINARY: Denies dysuria or hematuria. SKIN: Denies rash or itching. MUSCULOSKELETAL: Denies back pain, joint pain, or myalgia. NEUROLOGIC: Denies headache, numbness, or weakness. PSYCHIATRIC: Denies anxiety or depression. [facility] Past Medical History Medical History Allergies Anxiety Chronic GERD Colitis 03/2018 Cyst of skin Depression Hematochezia Hypertension Surgical History Surgical History H/O section 2003 H/O elbow surgery Right History of radical hysterectomy 09/2016 Family History Family History Mother Hypertension Cerebrovascular accident Carcinoma of colon Father Malignant neoplasm of prostate Social History Social History Social History: Caffeine-none Smoking status: Never smoker Alcohol intake: current Drinks per week: 2 Alcohol use details: occasional Substance use: never Substance use type: does not use Lack of Transportation: No Lack of Food: Never True Current Housing: I Have Housing Concerned About Future Housing: No Difficulty Paying Gas/Electric Bills: No Difficulty Paying for Meds: No Currently Unemployed: No Education: High School Diploma/GED Difficulty w/ Childcare or Family Care: No Living arrangements: with family Spiritual care concerns: No Comments At the time of my signature I agree with nursing past medical history, surgical, social, and family history. There is no relevant family history pertinent to the presenting complaint. Exam Narrative: GENERAL: Well-appearing, well-nourished, and in no acute distress. HEAD: Normocephalic, atraumatic. EYES: PERRLA and E
== END 2023-12-24 14:23 | disposition home or self-care (01) ==
PROVIDERS: Emergency Provider Nurse Practitioner Family; PCP Internal Medicine
DX: I88.9 Nonspecific lymphadenitis, unspecified (principal); I10 Essential (primary) hypertension; K21.9 Gastro-esophageal reflux disease without esophagitis; F41.9 Anxiety disorder, unspecified; F32.A Depression, unspecified
CPT/HCPCS: 99211; G0463

== ENCOUNTER 2024-02-16 15:06 | Outpatient (CLI) | payer OTHER, SELFPAY ==
[2024-02-16 19:27] LABS: CRP < 0.5 mg/dL (<1.0)
[2024-02-16 20:17] LABS: Erythrocyte Sedimentation Rate 15 mm/hr (0-20)
[2024-02-22 09:02] LABS: SS-A <1.0; SS-B <1.0
[2024-02-22 09:03] LABS: ANA Cascade Screen Negative
== END 2024-02-16 15:07 | disposition home or self-care (01) ==
LOC: ANHGOSHLAB 15:08
PROVIDERS: PCP Internal Medicine; Visit Provider Nurse Practitioner
DX: R68.2 Dry mouth, unspecified (principal); R53.83 Other fatigue; M25.50 Pain in unspecified joint
CPT/HCPCS: 36415; 85652; 86038; 86140; 86225; 86235; 86364

== ENCOUNTER 2024-03-23 14:54 | Outpatient (CLI) | payer OTHER, SELFPAY ==
--- NOTE | ~2024-03-23 | MM_ITS ---
EXAMINATION: MM screening [facility] BI w allison HISTORY: Screening TECHNIQUE: Craniocaudal and mediolateral oblique 3-D tomosynthesis images were obtained and synthetic 2-D images were generated. CAD analysis was submitted and interpreted. COMPARISON: Comparison to multiple prior studies sequentially, with oldest reviewed study dated 04/03. BREAST PARENCHYMAL COMPOSITION: Not dense: There are scattered areas of fibroglandular density. FINDINGS: There is no evidence of suspicious mass, calcification, or architectural distortion to sugg est malignancy in either breast. There has been no suspicious interval change. IMPRESSION: 1. No mammographic evidence of malignancy. 2. Recommend routine screening mammography in one year. BI-RADS Category 1: Negative Reviewed, dictated and finalized at location A. OPERATIONS ASSOCIATE
== END 2024-03-23 14:55 | disposition home or self-care (01) ==
LOC: MICIMG 14:55
PROVIDERS: PCP Obstetrics & Gynecology; Visit Provider Obstetrics & Gynecology
DX: Z12.31 Encounter for screening mammogram for malignant neoplasm of breast (principal)
CPT/HCPCS: 77063; 77067

== ENCOUNTER 2024-04-28 11:21 | Outpatient (CLI) | payer OTHER, SELFPAY ==
--- NOTE | 2024-04-28 11:29 | ECG_ITS ---
Test Date: 2024-04-28 11:39:44 Measurements Intervals [place] Rate: 68 P: 73 CT: 169 QRS: 53 QRSD: 90 T: 56 QT: 397 QTc: 423 Interpretive Statements SINUS RHYTHM CANNOT R/O SEPTAL INFARCT, AGE INDETERMINATE ABNORMAL ECG No previous ECG available for comparison Electronically Signed On 04-28-2024 12:02:07 VENDOR ANALYST by Carlos Cloud D.O.
== END 2024-04-28 11:22 | disposition home or self-care (01) ==
LOC: ANHLAB 11:23
PROVIDERS: PCP Internal Medicine; Visit Provider Nurse Practitioner
DX: I10 Essential (primary) hypertension (principal); R94.31 Abnormal electrocardiogram [ECG] [EKG]
CPT/HCPCS: 93005

== ENCOUNTER 2024-05-10 10:04 | Outpatient (CLI) | payer OTHER, SELFPAY ==
--- NOTE | 2024-05-10 10:11 | EST_ITS ---
Patient Info Name: Maite Mclaughlin Age: 53 years : 1970 Gender: Female Ht: 67 in Wt: 175 lbs BSA: 1.95 m2 HR: 64 bpm BP: 147 / 99 mmHg Exam Date: 05/10/2024 10:21 AM Exam Location: Echo Lab Patient Status: Outpatient Admit Date: 05/10/2024 Staff Ordering Physician: Beth Curran NP Attending Provider: Beth Curran NP Exercise Technologist: Yadira Malone [facility] Exercise Physician: Carlos Cloud DO Exam Type: CA stress test treadmill Study Info A treadmill exercise stress test was performed. Summary 1. 1. Negative [place] exercise stress test for ischemic ST changes by ECG criteria. However, patient achieved only 77% MPHR for age group which reduces sensitivity of the test. 2. 2. Reduced functional capacity, achieving 7 METs of workload. 3. 3. Baseline hypertension. 4. 4. Appropriate HR response to exercise. 5. 5. Approriate HR recovery at 1 minute post exercise. 6. 6. No imaging with stress testing. 7. 7. Patient informed of the above results. Protocol: [place] Stress ECG Details Stage: REST Duration (min): 0 min : 53 sec Speed (mph): 0.0 Grade (%): 0 HR (bpm): 64 SBP (mmHg): 147 DBP (mmHg): 99 METS: --- Stage: REST Duration (min): 5 min : 26 sec Speed (mph): 0.0 Grade (%): 0 HR (bpm): 68 SBP (mmHg): 147 DBP (mmHg): 99 METS: --- Stage: STAGE 1 Duration (min): 1 min : 0 sec Speed (mph): 1.7 Grade (%): 10 HR (bpm): 92 SBP (mmHg): 147 DBP (mmHg): 99 METS: --- Stage: STAGE 1 Duration (min): 2 min : 0 sec Speed (mph): 1.7 Grade (%): 10 HR (bpm): 106 SBP (mmHg): 147 DBP (mmHg): 99 METS: --- Stage: STAGE 1 Duration (min): 3 min : 0 sec Speed (mph): 1.7 Grade (%): 10 HR (bpm): 113 SBP (mmHg): 167 DBP (mmHg): 88 METS: --- Stage: STAGE 2 Duration (min): 1 min : 0 sec Speed (mph): 2.5 Grade (%): 12 HR (bpm): 119 SBP (mmHg): 167 DBP (mmHg): 88 METS: --- Stage: STAGE 2 Duration (min): 2 min : 0 sec Speed (mph): 2.5 Grade (%): 12 HR (bpm): 124 SBP (mmHg): 187 DBP (mmHg): 91 METS: --- Stage: STAGE 2 Duration (min): 3 min : 0 sec Speed (mph): 2.5 Grade (%): 12 HR (bpm): 128 SBP (mmHg): 187 DBP (mmHg): 91 METS: --- Stage: STAGE 3 Duration (min): 0 min : 11 sec Speed (mph): 3.4 Grade (%): 14 HR (bpm): 128 SBP (mmHg): 187 DBP (mmHg): 91 METS: --- Stage: RECOVERY Duration (min): 0 min : 48 sec Speed (mph): 0.0 Grade (%): 0 HR (bpm): 114 SBP (mmHg): 191 DBP (mmHg): 91 METS: --- Stage: RECOVERY Duration (min): 1 min : 48 sec Speed (mph): 0.0 Grade (%): 0 HR (bpm): 98 SBP (mmHg): 191 DBP (mmHg): 91 METS: --- Stage: RECOVERY Duration (min): 2 min : 48 sec Speed (mph): 0.0 Grade (%): 0 HR (bpm): 85 SBP (mmHg): 182 DBP (mmHg): 93 METS: --- Stage: RECOVERY Duration (min): 3 min : 3 sec Speed (mph): 0.0 Grade (%): 0 HR (bpm): 87 SBP (mmHg): 182 DBP (mmHg): 93 METS: --- Rest HR: 68 bpm Peak HR: 129 bpm Rest Sys BP: 147 mmHg Peak Sys BP: 191 mmHg Max Pred HR: 167 bpm % Max Pred HR: 77 % Target HR: 142 bpm Max RPP: 24,639 bpm*mmHg Lott Score: 3 Termination Reason: Reached target heart rate or workload Cardiac Symptoms: Shortness of breath Max ST Seg Deviation: -0.70 mm Total Time: 6 min : 11 sec Rest Bond BP: 99 mmHg Peak Bond BP: 91 mmHg Angina Score: None Total METS: 7.4 Resting ECG Sinus rhythm. Stress ECG No ST changes. Arrhythmias None. Report Signatures
== END 2024-05-10 10:05 | disposition home or self-care (01) ==
PROVIDERS: PCP Internal Medicine; Visit Provider Nurse Practitioner
DX: R94.31 Abnormal electrocardiogram [ECG] [EKG] (principal)
CPT/HCPCS: 93017

== ENCOUNTER 2024-12-07 13:09 | Outpatient (CLI) | payer OTHER, SELFPAY ==
--- OUTSIDE RECORDS SUMMARY | 2024-12-06 13:30 | XMS_ITS | Encounter Summary ---
Author Organization [facility] Address [address] [place] [address] Phone Care Team Providers Care Health Center Manager Name Role Phone Unknown, Notinfile Primary Care Provider Unavail able Shahram Banuelos MD Unavailable [phone] Reason for Referral * Diagnostic Imaging (Routine) - Authorized Specialty Diagnoses / Procedures Referred By Contac t Referred To Contact Diagnoses Sjogren's syndrome, with unspecified organ involvement Arthralgia, unspecified joint Other fatigue Paresthesia Procedures XR Hand Right 2 Views Emily Shi PA [address] [place] [address] Phone: tel: fax: External Order Referral ID Status Reason Start Date Expiration Date V isits Requested Visits Authorized [id number] Authorized 12/06/2024 01/05/2026 1 1 * Diagnostic Imaging (Routine) - Authorized Specialty Diagnoses / Procedures Referred By Contac t Referred To Contact Diagnoses Sjogren's syndrome, with unspecified organ involvement Arthralgia, unspecified joint Other fatigue Paresthesia Procedures XR Hand Left 2 Views Emily Shi PA [address] [place] [address] Phone: tel: fax: External Order Referral ID Status Reason Start Date Expiration Date V isits Requested Visits Authorized [id number] Authorized 12/06/2024 01/05/2026 1 1 * Diagnostic Imaging (Routine) - Authorized Specialty Diagnoses / Procedures Referred By Contjose t Referred To Contact Diagnoses Sjogren's syndrome, with unspecified organ involvement Arthralgia, unspecified joint Other fatigue Paresthesia Procedures XR Foot Right 2 Views Emily Shi PA [address] [place] [address] Phone: tel: fax: External Order Referral ID Status Reason Start Date Expiration Date V isits Requested Visits Authorized [id number] Authorized 12/06/2024 01/05/2026 1 1 * Diagnostic Lab (Routine) - Authorized Specialty Diagnoses / Procedures Referred By Rochelle t Referred To Contact Lab Diagnoses Sjogren's syndrome, with unspecified organ involvement Arthralgia, unspecified joint Other fatigue Paresthesia Procedures AVISE CTD - Miscellaneous Test Emily Shi PA [address] [place] [address] Phone: tel: fax: Referral ID Status Reason Start Date Expiration Date V isits Requested Visits Authorized [id number] Authorized 12/06/2024 01/05/2026 1 1 * Neurology (Routine) - Authorized Specialty Diagnoses / Procedures [facility] Referred To Contact Diagnoses Sjogren's syndrome, with unspecified organ involvement Arthralgia, unspecified joint Other fatigue Paresthesia Procedures EMG/NCV - Emily Shi PA [address] [place] [address] Phone: tel: fax: External Order Referral ID Status Reason Start Date Expiration Date V isits Requested Visits Authorized [id number] Authorized 12/06/2024 01/05/2026 1 1 * Diagnostic Imaging (Routine) - Authorized Specialty Diagnoses / Procedures Referred By Rochelle gracia Referred To Contact Diagnoses Sjogren's syndrome, with unspecified organ involvement Arthralgia, unspecified joint Other fatigue Paresthesia Procedures US Ankle Foot Complete Emily Shi PA [address] [place] [address] Phone: tel: fax: External Order Referral ID Status Reason Start Date Expiration Date V isits Requested Visits Authorized [id number] Authorized 12/06/2024 01/05/2026 1 1 Encounter Details Date Type Department Care Team (Late st Contact Info) Description 12/06/2024 1:30 PM CDT Office Visit [facility] [address] [place] [phone] Emily Shi PA [address] [place] [address] Sjogren's syndrome, with unspecified organ involvement (Primary Dx); Arthralgia, unspecified joint; Other fatigue; Paresthesia Social History Tobacco Use Types Packs/Day Years Used Date Smoking Tobacco: Never Assessed Comments Unknown Sex and Gender Information Value Date Recorded Sex Assigned at Not on file Legal Sex Female 7:00 PM CDT Gender Identity Not on file Sexual Orientation Not on file documented as of this encounter Last Filed Vital Signs Vital Sign Reading Time Taken Comments Blood Pressure 140/86 12/06/2024 1:57 PM CDT Pulse - - Temperature - - Respiratory Rate - - Oxygen Saturation - - Inhaled Oxygen Concentration - - Weight 88.1 kg (194 lb 3.2 oz) 12/06/2024 1:57 P M CDT Height 170.2 cm (5' 7) 12/06/2024 1:57 PM CDT Body Mass Index 30.42 12/06/2024 1:57 PM CDT documented in this encounter Miscellaneous Notes * Assessment & Plan Note - Emily Shi PA - 12/06/2024 5:38 PM CDTAssociated Problem(s): Sjogren's syndrome Ms. Mclaughlin is a 54yo female with PMH of HTN, depression, anxiety and TONYA who presents to establish care of her Sjogren's Syndrome. Reports onset of sicca sxs 1 year ago with lip biopsy showing fociof 1. She also reports AM symptoms of joint pain/swelling affecting her hands and feet with paresthesias of her feet. Patient followed up with rheumatology and tried cevimeline, pilocarpine, hydroxychloroquine and methotrexate without reduction in her symptoms. She has also been on 10-15mg prednisone daily for the past 5 months with continuation of her symptoms, only noting improvement when she took a medrol dose pack. She has also tried gabapentin for the neuropathies wo benefit and is now on lyrica through her PCP. No contributory FH. No synovitis on exam with several tender peripheral joints. Will obtain updated serologies, labs, radiographic imaging of her hands/feet and a left foot US - to have US performed off prednisone. To reduce prednisone to 5mg daily x 5 days and then discontinue.Will also have her stop methotrexate as she notes no benefit. Continue conservative therapy for sicca symptoms. Seen with Dr. Banuelos. documented in this encounter Plan of Treatment Scheduled Orders Name Type Priority Associated Diagnoses Order Schedule US Ankle Foot Complete Imaging Schedule Routine, Read Routine (OP Routine) Sjogren's syndrome, with unspecified organ involvement Arthralgia, unspecified joint Other fatigue Paresthesia Expected: 12/06/2024, Expires: 12/06/2025 EMG/NCV - Neurology Routine Sjogren's syndrome, with unspecified organ involvement Arthralgia, unspecified joint Other fatigue Paresthesia 1 Occurrences starting 12/06/2024 until 12/06/2025 AVISE CTD - Miscellaneous Test Lab Routine Sjogren's syndrome, with unspecified organ involvement Arthralgia, unspecified joint Other fatigue Paresthesia Expected: 12/06/2024, Expires: 12/06/2025 XR Foot Left 2 Views Imaging Schedule Routine, Read Routine (OP Routine) Sjogren's syndrome, with unspecified organ involvement Arthralgia, unspecified joint Other fatigue Paresthesia Expected: 12/06/2024, Expires: 12/06/2025 XR Foot Right 2 Views Imaging Schedule Routine, Read Routine (OP Routine) Sjogren's syndrome, with unspecified organ involvement Arthralgia, unspecified joint Other fatigue Paresthesia Expected: 12/06/2024, Expires: 12/06/2025 XR Hand Left 2 Views Imaging Schedule Routine, Read Routine (OP Routine) Sjogren's syndrome, with unspecified organ involvement Arthralgia, unspecified joint Other fatigue Paresthesia Expected: 12/06/2024, Expires: 12/06/2025 XR Hand Right 2 Views Imaging Schedule Routine, Read Routine (OP Routine) Sjogren's syndrome, with unspecified organ involvement Arthralgia, unspecified joint Other fatigue Paresthesia Expected: 12/06/2024, Expires: 12/06/2025 documented as of this encounter Procedures Procedure Name Priority Date/Time Associated Diagnosis Comments CBC WITH AUTO DIFFERENTIAL Routine 12/06/2024 3:37 PM CDT Sjogren's syndrome, with unspecified organ involvement Arthralgia, unspecified joint Other fatigue Paresthesia ERYTHROCYTE SEDIMENTATION RATE Routine 12/06/2024 3:37 PM CDT Sjogren's syndrome, with unspecified organ involvement Arthralgia, unspecified joint Other fatigue Paresthesia CRP (ACUTE PHASE) Routine 12/06/2024 3:3 7 PM CDT Sjogren's syndrome, with unspecified organ involvement Arthralgia, unspecified joint Other fatigue Paresthesia COMPREHENSIVE METABOLIC PANEL Routine 12/06/2024 3:37 PM CDT Sjogren's syndrome, with unspecified organ involvement Arthralgia, unspecified joint Other fatigue Paresthesia documented in this encounter Results * CRP (acute phase) (12/06/2024 3:37 PM CDT) [facility] C-RP <3.0 <8.0 mg/L [facility] Blood 12/06/2024 3:37 PM CDT 12/06/2024 3:37 PM CDT Emily SANTOS LAB BLOOD ORDER LEXIS Final Result Performing Organization Address City/[facility]/ZIP Co de Phone Number [facility] [address] [place] [address] * Erythrocyte sedimentation rate (12/06/2024 3:37 PM CDT) [facility] Erythrocyte sedimentation rate 6 < OR = 30 mm/h [facility] Blood 12/06/2024 3:37 PM CDT 12/06/2024 3:37 PM CDT Emily SANTOS LAB BLOOD ORDER LEXIS Final Result Performing Organization Address [facility] Co de Phone Number [facility]ST [facility] [address] [place] [address] * Comprehensive metabolic panel (12/06/2024 3:37 PM CDT) [facility] Glucose 94 65 - 99 mg/dL [facility] Comment: Fasting reference interval BUN 19 7 - 25 mg/dL [facility] Creatinine 0.69 0.50 - 1.03 mg/dL [facility] eGFR 103 > OR = 60 mL/min/1.7 3m2 [facility] BUN/creat ratio SEE NOTE: 6 - 22 (calc) [facility] Comment: Not Reported: BUN and Creatinine are within reference range. Sodium 140 135 - 146 mmol/L [facility] Potassium, pl 4.5 3.5 - 5.3 mmol/L [facility] Chloride 101 98 - 110 mmol/L [facility] CO2 31 20 - 32 mmol/L [facility] Calcium 10.0 8.6 - 10.4 mg/dL [facility] Protein, sr 6.7 6.1 - 8.1 g/dL [facility] Albumin 4.3 3.6 - 5.1 g/dL [facility] GLOBULIN 2.4 1.9 - 3.7 g/dL (calc) [facility] Alb/glob ratio 1.8 1.0 - 2.5 (calc) [facility] Bilirubin, total 0.5 0.2 - 1.2 mg/dL [facility] Alk phos 47 37 - 153 U/L [facility] AST 15 10 - 35 U/L [facility] ALT (SGPT) 21 6 - 29 U/L [facility] Blood 12/06/2024 3:37 PM CDT 12/06/2024 3:37 PM CDT us Emily SANTOS LAB BLOOD ORDER LEXIS Final Result [facility] [address] [place] [address] * (ABNORMAL) CBC with auto differential (12/06/2024 3:37 PM CDT) WBC 12.0(H) 3.8 - 10.8 Thousand/u L [facility] RBC, POC 4.12 3.80 - 5.10 Million/uL [facility] Hgb 13.6 11.7 - 15.5 g/dL [facility] Hct 40.4 35.0 - 45.0 % [facility] MCV 98.1 80.0 - 100.0 fL [facility] MCH 33.0 27.0 - 33.0 pg [facility] MCHC 33.7 32.0 - 36.0 g/dL [facility] Comment: For adults, a slight decrease in the calculated MCHC value (in the range of 30 to 32 g/dL) is most likely not clinically significant; however, it should be interpreted with caution in correlation with other red cell parameters and the patient's clinical condition. Rdw 12.9 11.0 - 15.0 % [facility] Platelets 297 140 - 400 Thousand/u L [facility] MPV 10.6 7.5 - 12.5 fL [facility] Neutrophils, abs 8,748(H) 1,500 - 7,800 cells/uL [facility] Lymphocytes, abs 2,460 850 - 3,900 cells/uL [facility] Monocyte abs 720 200 - 950 cells/uL [facility] Eosinophils, abs 36 15 - 500 cells/uL [facility] Basophils, abs 36 0 - 200 cells/uL [facility] Neutrophils 72.9 % [facility] Lymphocyte pct 20.5 % [facility] Monocytes 6.0 % [facility] Eosinophils 0.3 % [facility] Basophils 0.3 % [facility] Blood 12/06/2024 3:37 PM CDT 12/06/2024 3:37 PM CDT Emily SANTOS LAB BLOOD ORDER LEXIS Final Result [facility] [address] [phone] documented in this encounter Visit Diagnoses Diagnosis Sjogren's syndrome, with unspecified organ involvement- Primary Arthralgia, unspecified joint Other fatigue Paresthesia Disturbance of skin sensation documented in this encounter Historical Medications * This list may reflect changes made after this encounter. multivitamin tablet Take 1 tablet by mouth daily vitamin B complex with folic acid tablet Take by mouth daily turmeric root extract 500 mg tablet Take by mouth cranberry fruit 400 mg tablet Take 400 mg by mouth daily magnesium gluconate (Mag-G) 500 mg (27 mg elemental) tablet Take 1 tablet (500 mg total) by mouth daily pregabalin (LYRICA) 25 mg capsule Take 1 capsule (25 mg total) by mouth 3 (three) times a day predniSONE (DELTASONE) 5 mg tablet Take 1 tablet (5 mg) by mouth daily diclofenac DR (VOLTAREN) 75 mg EC tablet Take 1 tablet (75 mg total) by mouth 2 (two) times a day PARoxetine (PAXIL) 40 mg tablet Take 1 tablet (40 mg total) by mouth daily PARoxetine (PAXIL) 10 mg tablet Take 1 tablet (10 mg total) by mouth 11/15/2024 solifenacin (VESIcare) 10 mg tablet Take 1 tablet (10 mg total) by mouth daily metoprolol tartrate (LOPRESSOR) 50 mg immediate release tablet Take 1 tablet (50 mg total) by mouth daily 11/18/2024 lisinopriL (PRINIVIL,ZESTRIL ) 20 mg tablet Take 1 tablet (20 mg total) by mouth daily 09/24/2024 added in this encounter Care Teams Health Center Manager Relationship Specialty Start Date End Date Unknown, Notinfile PCP - General 10/22/24 Shahram Banuelos MD [address] [place] [address] Consulting Physician Rheumatology 11/20/24 documented as of this encounter
--- NOTE | ~2024-12-07 | XR_ITS ---
EXAMINATION: XR foot RT 2V, 12/07/2024 13:28 CDT HISTORY: sjogren's syndrome, w specified organ involvement COMPARISON: No comparisons available. Findings: No acute fracture or malalignment. No significant degenerative changes. Soft tissues unremarkable. Impression: No acute fracture or malalignment. Reviewed, dictated and finalized at location P. Impression: No acute fracture or malalignment.
--- NOTE | ~2024-12-07 | XR_ITS ---
EXAMINATION: XR foot LT 2V, 12/07/2024 13:28 CDT HISTORY: sjogren's syndrome, w specified organ involvement COMPARISON: No comparisons available. Findings: No acute fracture or malalignment. No significant degenerative changes. Soft tissues unremarkable. Impression: No acute fracture or malalignment. Reviewed, dictated and finalized at location P. Impression: No acute fracture or malalignment.
--- NOTE | ~2024-12-07 | XR_ITS ---
EXAMINATION: XR hand RT 2V, 12/07/2024 13:28 CDT HISTORY: sjogren's syndrome, w specified organ involvement COMPARISON: No comparisons available. Findings: No acute fracture or malalignment. No significant degenerative changes. Soft tissues unremarkable. Impression: No acute fracture or malalignment. Reviewed, dictated and finalized at location P. Impression: No acute fracture or malalignment.
--- NOTE | ~2024-12-07 | XR_ITS ---
EXAMINATION: XR hand LT 2V, 12/07/2024 13:28 CDT HISTORY: sjogren's syndrome, w specified organ involvement COMPARISON: No comparisons available. Findings: No acute fracture or malalignment. No significant degenerative changes. Soft tissues unremarkable. Impression: No acute fracture or malalignment. Reviewed, dictated and finalized at location P. Impression: No acute fracture or malalignment.
--- OUTSIDE RECORDS SUMMARY | 2024-12-07 13:14 | XMS_ITS | Clinical Summary ---
Author Organization [facility] Address [address] [place] [address] Care Team Providers Care Occupational Therapy Professor Name Role Phone Unknown, Notinfile Primary Care Provider Unavail able Shahram Banuelos MD Unavailable [phone] Allergies No known active allergies Medications lisinopriL (PRINIVIL,ZESTR IL) 20 mg tablet Take 1 tablet (20 mg total) by mouth daily 5 Active metoprolol tartrate (LOPRESSOR) 50 mg immediate release tablet Take 1 tablet (50 mg total) by mouth daily 5 Active solifenacin (VESIcare) 10 mg tablet Take 1 tablet (10 mg total) by mouth daily Active PARoxetine (PAXIL) 10 mg tablet Take 1 tablet (10 mg total) by mouth 5 Active PARoxetine (PAXIL) 40 mg tablet Take 1 tablet (40 mg total) by mouth daily Active diclofenac DR (VOLTAREN) 75 mg EC tablet Take 1 tablet (75 mg total) by mouth 2 (two) times a day Active predniSONE (DELTASONE) 5 mg tablet Take 1 tablet (5 mg) by mouth daily Active pregabalin (LYRICA) 25 mg capsule Take 1 capsule (25 mg total) by mouth 3 (three) times a day Active magnesium gluconate (Mag-G) 500 mg (27 mg elemental) tablet Take 1 tablet (500 mg total) by mouth daily Active cranberry fruit 400 mg tablet Take 400 mg by mouth daily Active turmeric root extract 500 mg tablet Take by mouth Active vitamin B complex with folic acid tablet Take by mouth daily Active multivitamin tablet Take 1 tablet by mouth daily Active al & mag hydroxide with simethicone-dip henhydramine-li docaine (MAGIC MOUTHWASH) suspension 1-1-1 Swish and spit 10 mL every 4 (four) hours as needed (For burning/tingli ng sensation in mouth) 1800 mL 2 5 11/22/19 25 Active Problems Problem Noted Date Diagnosed Date Sjogren's syndrome 12/06/2024 Assessment & Plan (12/07/2024 12:21 PM CDT): Ms. Mclaughlin is a 54yo female with PMH of HTN, depression, anxiety and TONYA who presents to establish care of her Sjogren's Syndrome. Reports onset of sicca sxs 1 year ago with lip biopsy showing foci of 1. She also reports AM symptoms of [...] 5mg daily x 5 days and then discontinue. Will also have her stop methotrexate as she notes no benefit. Continue conservative therapy for sicca symptoms. Seen with Dr. Banuelos. Encounters Date Type Department Care Team Description 12/06/2024 1:30 PM CDT Office Visit [facility] [address] [place] [phone] Emily Shi PA Sjogren's syndrome, with unspecified organ involvement (Primary Dx); Arthralgia, unspecified joint; Other fatigue; Paresthesia 11/20/2024 Orders Only [facility] [address] [place] [phone] Emily Shi PA 10/22/2024 Orders Only [facility] Surgeon [address] [facility] [place] [address] Navarro Han DMD 10/15/2024 4:00 PM CDT - 10/15/2024 11:59 PM CDT Hospital Encounter [facility] PATHOLOGY [address] [facility] 3rd [place] [address] Discharge Disposition: Discharge to home or self care from Last 3 Months Surgical History Surgery Date Site/Laterality Comments SECTION ELBOW SURGERY Right CHOLECYSTECTOMY HYSTERECTOMY Social History Tobacco Use Types Packs/Day Years Used Date Smoking Tobacco: Never Assessed Comments Unknown Sex and Gender Information Value Date Recorded Sex Assigned at Not on file Legal Sex Female 7:00 PM CDT Gender Identity Not on file Sexual Orientation Not on file Obstetrics History Last Filed Vital Signs Vital Sign Reading [...] Mass Index 30.42 12/06/2024 1:57 PM CDT Plan of Treatment Health Maintenance Due Date Last Done Comments Breast Cancer Screening-Mammogram 1970 Colon Cancer Screening-Colonoscopy 1970 Depression Screening 1970 Hepatitis C Screening 1970 DTaP/Tdap/Td Vaccine (1 - Tdap) 1981 Hepatitis B Screening 1988 Regular Well Visit/Exam 18-64 1988 Zoster Vaccine (1 of 2) 2020 Influenza Vaccine (#1) 2024 Pneumococcal vaccine <65 Aged Out No longer eligible based on patient's age to complete this topic Procedures Procedure Name Priority Date/Time Associated Diagnosis Comments CRP (ACUTE PHASE) Routine 12/06/2024 3:3 7 PM CDT Sjogren's syndrome, with unspecified organ involvement Arthralgia, unspecified joint Other fatigue Paresthesia ERYTHROCYTE SEDIMENTATION RATE Routine 12/06/2024 3:37 PM CDT Sjogren's syndrome, with unspecified organ involvement Arthralgia, unspecified joint Other fatigue Paresthesia COMPREHENSIVE METABOLIC PANEL Routine 12/06/2024 3:37 PM CDT Sjogren's syndrome, with unspecified organ involvement Arthralgia, unspecified joint Other fatigue Paresthesia CBC WITH AUTO DIFFERENTIAL Routine 12/06/2024 3:37 PM CDT Sjogren's syndrome, with unspecified organ involvement Arthralgia, unspecified joint Other fatigue Paresthesia SCAN - LABS 11/20/2024 3:34 PM CDT SURGICAL PATHOLOGY Routine 10/15/2024 4: 00 PM CDT from Last 3 Months Results * (ABNORMAL) CBC with auto differential (12/06/2024 [...] ORDER LEXIS Final Result Performing Organization Address City/[facility] Co de Phone Number [facility] [address] [place] [address] * Erythrocyte sedimentation rate (12/06/2024 3:37 PM CDT) Pathologist [facility] Erythrocyte sedimentation rate 6 < OR = 30 mm/h [facility] Blood 12/06/2024 3:37 PM CDT 12/06/2024 3:37 PM CDT Emily SANTOS LAB BLOOD ORDER LEXIS Final Result Performing Organization Address City/[facility] de Phone Number [facility] [address] [place] [address] * CRP (acute phase) (12/06/2024 3:37 PM CDT) C-RP <3.0 <8.0 mg/L [facility] Blood 12/06/2024 3:37 PM CDT 12/06/2024 3:37 PM CDT Emily SANTOS LAB BLOOD ORDER LEXIS Final Result [facility] [address] [address] [phone] * Comprehensive metabolic panel (12/06/2024 3:37 PM CDT) Glucose 94 65 - 99 mg/dL [facility] [...] LAB BLOOD ORDER LEXIS Final Result [facility] [address] [place] [address] * SCAN - LABS (11/20/2024 3:34 PM CDT) Emily SANTOS Final Result * Surgical pathology (10/15/2024 4:00 PM CDT) Lip, biopsy 10/15/2024 4:00 PM CDT 10/15/2024 5:51 PM CDT Narrative 10/16/2024 4:46 PM CDT EPIC results best viewed via link to PDF [facility] [place] [address] Note to Patients: This report may contain a detailed description of human tissue sent by a health care provider to the laboratory for pathologic evaluation. The content of this report is essential for diagnosis and may provide important critical findings. This information may be unfamiliar to patients to review without a medical professional present. It is advised that the patient review this report in the presence of a health care provider who can answer questions and explain the details. SURGICAL PATHOLOGY REPORT FINAL Patient Name: SHERINE MCLAUGHLIN Gender: F : 1970 (Age: 54) Address: [address] [place] [address] Hospital #: [id number] Taken:10/15/2024 Received:10/15/2024 Reported: 10/16/2024 Patient Type: [facility] SPECIMEN Service: Oral/Maxillo-facial Location: Physician(s): Navarro Han DDS Diagnosis: Lower lip, biopsy: - Focal lymphocytic sialadenitis (focus score=1) - Three lobules of minor salivary gland bandar/10/16/2024 11:29 By this signature, I attest that the above diagnosis is based upon my personal examination of the slides(and/or other material indicated in the diagnosis). Aruna Brooke MD, PhD Report Electronically Reviewed and Signed Out By Aruna Brooke MD, PhD 10/16/2024 16:46:13 Microscopic Description and Comment: Microscopic examination substantiates the above cited diagnosis. Adarsh Perry. History: The patient is a 54-year-old woman presenting with suspected Sjogren syndrome. Operative procedure: Midline lower lip biopsies. Specimen(s) Received: A: Midline lower lip Gross Description: Received in formalin, labeled with the patient's identifiers and midline lower lip are multiple red-stratton fragments of tissue measuring 0.6 x 0.4 x 0.1 cm in aggregate. Labeled A1. Jar 0. sxst/10/15/2024 19:25 PA(s): Zuleyma Pulido By this signature, I attest that the above diagnosis is based upon my personal examination of the slides(and/or other material). Addenda/Procedures The performance characteristics of some immunohistochemical stains, fluorescence in-situ hybridization tests and immunophenotyping by flow cytometry cited in this report (if any) were determined by the Surgical Pathology and Flow Cytometry Departments at [facility] as part of an ongoing associate quality engineer program and in compliance with federally mandated regulations drawn from the Clinical Laboratory Improvement Act of 1988 (CLIA '88). Some of these tests rely on the use of analyte specific reagents and are subject to specific labeling requirements by the US Food and Drug Administration. Such diagnostic tests may only be performed in a facility that is certified by the Department of Health and Human Services as a high complexity laboratory under CLIA '88. The FDA has determined that such clearance or approval is not necessary. This test is used for clinical purposes. It should not be regarded as investigational or for research. Nevertheless, federal rules concerning the medical use of analyte specific reagents require that the following disclaimer be attached to the report: This test was developed and its performance characteristics determined by the Surgical Pathology and Flow Cytometry Departments of [facility]. It has not been cleared or approved by the U. S. Food and Drug Administration. IMAGES AND SCANNED DOCUMENTS, IF INCLUDED, ONLY VIEWABLE IN PDF VERSION OF REPORT Navarro Han [facility] PATHOLOGY ORDERAB LES Final Result from Last 3 Months Insurance [facility] AETNA SIGNATURE Care Teams Occupational Therapy Professor Relationship Specialty Start Date End Date Unknown, Notinfile PCP - General 10/22/24 Shahram Banuelos MD [address] [place] [address] Consulting Physician Rheumatology 11/20/24
--- OUTSIDE RECORDS SUMMARY | 2024-12-07 13:14 | XMS_ITS | Clinical Summary ---
Author Organization [facility] Address [address] [place] [address] Care Team Providers Care Poultry Picker Name Role Phone William Barger MD Unavailable [phone] William Barger MD Primary Care Provider [phone] Source Comments [facility],non-owned Affiliates and Associated Physician Practices is amultiple site organization consisting of ambulatory clinics and hospital sitesin [place], [place], [place] and [place]. This disclosure is being madepursuant to the Care Everywhere program and may not contain all information available regarding this patient. Last updated 17.[facility] Allergies No known active allergies Medications * Be aware that medications may not be up to date on this document. Alwaysverify current medications with the patient. lisinopril (Prinivil; Zestril) 20 MG tablet Take 1 (one) tablet by mouth once daily 09/24/2024 Active metoprolol tartrate IR (Lopressor) 50 MG tablet Take 1 (one) tablet by mouth once daily 11/18/2024 Active folic acid (Folvite) 1 MG tablet Take 1 (one) tablet by mouth once daily 11/19/2024 Active solifenacin (Vesicare) 10 MG tablet Take 1 (one) tablet by mouth once daily Active PARoxetine (Paxil) 40 MG tablet Take 1 (one) tablet by mouth once daily Active pregabalin (Lyrica) 25 MG capsule Take 1 (one) capsule by mouth 3 times daily Active predniSONE (Deltasone) 5 MG tablet Take 1 (one) tablet by mouth once daily Active methotrexate 2.5 MG tablet Take by mouth every 7 days (once a week) Active diclofenac sodium EC (Voltaren) 75 MG tablet Take 1 (one) tablet by mouth 2 times daily Active Hermon-3 Fatty Acids (fish oil) 500 MG capsule Take by mouth 2 times daily Active cranberry (Cranberry) 400 MG tablet Take 1 (one) tablet by mouth once daily Active B Qzuoazd-Y-Btcst Acid (vitamin B complex with C) Take by mouth once daily Active zinc sulfate (Zincate) 220 (50 ZN) MG capsule Take 1 (one) capsule by mouth once daily Active magnesium gluconate 500 (27 Mg) MG tablet Take 1 (one) tablet by mouth once daily Active Turmeric 500 MG Acti ve multivitamin daily tablet Take 1 (one) tablet by mouth daily with food Active Encounters Date Type Department Care Team Description 11/29/2024 2:20 PM CDT Office Visit [address] [phone] Miguel Gibbs MD Tardive dyskinesia (Primary Dx) 10/08/[address] [phone] Miguel Gibbs MD Establish Care 10/04/2024 Office Visit External EXTERNAL NON-[facility] DEPT Iggy López MD from Last 3 Months Social History Tobacco Use Types Packs/Day Years Used Date Smoking Tobacco: Never Assessed Comments Unknown Sex and Gender Information Value Date Recorded Sex Assigned at Not on file Legal Sex Female 11:25 AM CDT Gender Identity Female 12/04/2024 10:47 AM CDT Sexual Orientation Straight 12/04/2024 10 :47 AM CDT Last Filed Vital Signs Vital Sign Reading Time Taken Comments Blood Pressure - - Pulse - - Temperature - - Respiratory Rate - - Oxygen Saturation - - Inhaled Oxygen Concentration - - Weight 85.3 kg (188 lb) 11/29/2024 2:20 PM CDT Height 170.2 cm (5' 7) 11/29/2024 2:20 PM CDT Body Mass Index 29.44 11/29/2024 2:20 PM CDT Plan of Treatment Upcoming Encounters Date Type Department Care Team (Late st Contact Info) Description 03/14/2025 12:40 PM CAD ADMINISTRATOR Office Visit [address] [place] [address] [place] [address] [facility] [address] [place] [address] Health Maintenance Due Date Last Done Comments COLOGUARD (AGES 45-75) - COL ON CA SCREENING 1970 COLON MONITORING 1970 COLONOSCOPY - COLON CA SCREENING 1970 CT COLONOGRAPHY - COLON CA SCREENING 1970 Colorectal Cancer Screening 1970 FIT - COLON CA SCREENING 1970 FLEX SIG - COLON CA SCREENING 1970 LIPID TESTING 1970 MAMMOGRAM 1970 HIV SCREENING 1985 HEPATITIS C SCREENING 08/20/1988 DTAP/TDAP/TD VACCINES (1 - Tdap) 1989 HEPATITIS B VACCINE (1 of 3 - 19+ 3-dose series) 1989 PAP SMEAR 08/26/1991 PNEUMOCOCCAL VACCINE 50+ (1 of 1 - PCV) 2020 ZOSTER VACCINE (1 of 2) 2020 DEPRESSION SCREENING 03/07/2024 COVID-19 VACCINE (3 - 2024-2 6 season) 2024 07/29/2020, 07/07/2020 INFLUENZA VACCINE (#1) 2024 SCREENING FOR DIABETES 11/29/2024 HIB VACCINE Aged Out No longer eligi ble based on patient's age to complete this topic HPV VACCINE Aged Out No longer eligi ble based on patient's age to complete this topic MENINGOCOCCAL (Group B) VACCINE SHARED DECISION-MAKING Aged Out No longer eligible based on patient's age to complete this topic MENINGOCOCCAL GROUPS A/C/Y/W VACCINE Aged Out No longer eligible b ased on patient's age to complete this topic Procedures Procedure Name Priority Date/Time Associated Diagnosis Comments MIGUEL BLOOD SCREEN W/REFLEX TITER Routine 11/30/2024 11:40 AM CDT Tardive dyskinesia COPPER BLOOD Routine 11/30/2024 11:39 AM CDT Tardive dyskinesia CERULOPLASMIN Routine 11/30/2024 11:38 AM CDT Tardive dyskinesia VITAMIN B12 FOLATE PANEL Routine 11/30/2024 11:38 AM CDT Tardive dyskinesia TSH/T4 THYROID SCREEN Routine 11/30/2024 11:38 AM CDT Tardive dyskinesia from Last 3 Months Results * (ABNORMAL) MIGUEL BLOOD SCREEN W/REFLEX TITER (11/30/2024 11:40 AM CDT) MIGUEL Positive(A) [facility] INSURANCE BILL Comment: Negative <1:80 Borderline 1:80 Positive >1:80 Performed at: 01 - [facility] [address] [id number] Wheel Installer: Cezar Dominguez PhD, Phone: [phone] Speckled Pattern 1:640(H) [facility] INSURANCE BILL Comment:ICAP nomenclature: A C-2,4,5,29 Note Comment [facility] INSURANCE BILL Comment: Pattern Potential Disease Association Homogeneous Systemic Lupus Erythematosus, Drug Induced Systemic Lupus Erythematosus, Chronic Autoimmune hepatitis, Juvenile Idiopathic Arthritis Speckled Sjogren Syndrome, Systemic Lupus Erythematosus, Subacute Cutaneous Lupus, Lupus, Congenital Heart Block, Mixed Connective Tissue Disease, Scleroderma-diffuse, Scleroderma-Autoimmune Myositis Overlap Syndrome, Systemic Lupus Janymjbybzoxp-Etmkskoprof-Dwokttjwix Myositis Overlap Syndrome, Systemic Autoimmune Rheumatic Disease, Undifferentiated Connective Tissue Disease Nucleolar Systemic Sclerosis, Scleroderma-Autoimmune Myositis Overlap Syndrome, Sjogren Syndrome, Raynaud phenomenon, Pulmonary Arterial Hypertension, Systemic Autoimmune Rheumatic Disease, Cancer Centromere Scleroderma-CREST, Limited Cutaneous SSc, Raynaud's Phenomenon, Primary Biliary Cholangitis Nuclear Dot Primary Biliary Cholangitis Nuclear Primary Biliary Cholangitis, Autoimmune Membrane Hepatitis/Liver disease, Systemic Autoimmune Rheumatic Disease, Autoimmune Cytopenias, Linear Scleroderma, Antiphospholipid Syndrome Blood BLOOD SPECIMEN / Unknown 11/30/2024 11:40 AM CDT 11/30/2024 Narrative [facility] - 12/04/2024 9:08 PM CDT Performed at: 01 - [facility] [id number] [place], [place] [id number] Wheel Installer: Cezar Dominguez PhD, Phone: [phone] us Miguel Gibbs MD LAB - CHEMISTRY ORDERABLES F inal Result [facility] INSURANCE BILL [address] [place] [address] * COPPER BLOOD (11/30/2024 11:39 AM CDT) Copper 117 80 - 158 ug/dL [facility] INSURANCE BILL Comment:Detection Limit = 5 Blood BLOOD SPECIMEN / Unknown 11/30/2024 11:39 AM CDT 11/30/2024 Narrative [facility] INSURANCE BILL - 12/05/2024 6:09 AM CDT Test(s) [id number], Serum or Plasma was developed and its performance characteristics determined by [employer]. It has not been cleared or approved by the Food and Drug Administration. Performed at: [address] [id number] Wheel Installer: Luis Olson MD, Phone: [phone] Miguel Gibbs MD LAB - CHEMISTRY ORDERABLES F inal Result Performing Organization Address [facility] de Phone Number [facility] INSURANCE BILL [address] [place] [address] * TSH/T4 THYROID SCREEN (11/30/2024 11:38 AM CDT) TSH 0.765 0.450 - 4.500 uIU/mL [facility] INSURANCE BILL T4 Total 4.8 4.5 - 12.0 ug/dL [facility] INSURANCE BILL Blood BLOOD SPECIMEN / Unknown 11/30/2024 11:38 AM CDT 11/30/2024 Narrative [facility] INSURANCE BILL - 12/01/2024 8:11 AM CDT Performed at: [address] [id number] Wheel Installer: Cezar Dominguez PhD, Phone: [phone] Miguel Gibbs MD LAB - CHEMISTRY ORDERABLES F inal Result Performing Organization Address [facility] Co de Phone Number [facility] B[facility] [address] [place] [address] * CERULOPLASMIN (11/30/2024 11:38 AM CDT) Ceruloplasmin 26.6 19.0 - 39.0 mg/dL [facility] INSURANCE BILL Blood BLOOD SPECIMEN / Unknown 11/30/2024 11:38 AM CDT 11/30/2024 Narrative [facility] INSURANCE BILL - 12/01/2024 9:10 AM CDT Performed at: [address] [id number] Wheel Installer: Cezar Dominguez PhD, Phone: [phone] Miguel Gibbs MD LAB - CHEMISTRY ORDERABLES F inal Result Performing Organization Address [facility] Co de Phone Number [facility] INSURANCE BILL [address] [place] [address] * VITAMIN B12 FOLATE PANEL (11/30/2024 11:38 AM CDT) [facility] Vitamin B12 907 232 - 1,245 pg/mL [facility] INSURANCE BILL Folate 17.4 >3.0 ng/mL [facility] INSURANCE BILL Comment: A serum folate concentration of less than 3.1 ng/mL is considered to represent clinical deficiency. Blood BLOOD SPECIMEN / Unknown 11/30/2024 11:38 AM CDT 11/30/2024 Narrative [facility] INSURANCE BILL - 12/01/2024 8:11 AM CDT Performed at: [address] [id number] Wheel Installer: Cezar Dominguez PhD, Phone: [phone] Miguel Gibbs MD LAB - CHEMISTRY ORDERABLES F inal Result Performing Organization Address [facility] Co de Phone Number [facility] INSURANCE BILL [address] [place] [address] from Last 3 Months Insurance [facility] Care Teams Poultry Picker Relationship Specialty Start Date End Date William Barger MD [address] [place] [address] PCP - General Family Medicine 11/29/24 William Barger MD [address] [place] [address] Family Medicine 11/29/24
== END 2024-12-07 13:10 | disposition home or self-care (01) ==
PROVIDERS: PCP Family Medicine; Visit Provider Physician Assistant Medical
DX: M25.50 Pain in unspecified joint (principal); R53.83 Other fatigue; R20.2 Paresthesia of skin; M35.00 Sjogren syndrome, unspecified
CPT/HCPCS: 73120; 73620

== ENCOUNTER 2025-01-17 02:09 | Day surgery (SDC) | payer OTHER, SELFPAY ==
[2025-01-14 08:41] VITALS: BMI 28.3
[2025-01-17 08:30] VITALS: BP 142/92; PULSE 67; RESP 18; TEMP 36.6; O2SAT 98
--- NOTE | 2025-01-17 08:41 | WPDANESEPPF ---
Anes - Initial Pre Proc Eval Procedure: Operation Date: 01/17/25 09:45 Proposed Procedures p Esophagogastroduodenoscopy - Kalin Sheth MD Date/Time: 01/17/25 08:41 Surgeon: Kalin Sheth MD Pre Op Diagnosis: Gastro-esophageal reflux disease without esophagit Patient Data Age: 54 Gender: F Height: 1.7 m Weight: 93.3 kg Last Vital Signs Temp 36.6 C 01/17/25 08:30 Pulse 67 01/17/25 08:30 Resp 18 01/17/25 08:30 BP 142/92 H 01/17/25 08:30 Pulse Ox 98 01/17/25 08:30 O2 Del Method Room Air 01/17/25 08:30 Allergies Allergy/AdvReac Type Severity Reaction Status Date / Time No Known Allergies Allergy Verified 01/14/25 08:37 Home Medications ?Medication ?Instructions ?Recorded ?Confirmed ?Type solifenacin 10 mg tablet 10 mg PO DAILY 12/24/23 01/17/25 History diclofenac sodium 75 mg 75 mg PO DAILY PRN pain 10/30/24 01/17/25 History tablet,delayed release folic acid 1 mg tablet 1 mg PO DAILY 10/30/24 01/17/25 History omega 8-dnq-pqp-fish oil 1,000 mg 1 cap PO DAILY 10/30/24 01/14/25 History (120 mg-180 mg) capsule (Fish Oil) paroxetine HCl 40 mg tablet 50 mg PO DAILY 10/30/24 01/17/25 History metoprolol tartrate 50 mg tablet 50 mg PO DAILY #30 tabs 11/16/24 01/17/25 Rx omeprazole 40 mg capsule,delayed 40 mg PO DAILY 12/21/24 01/17/25 History release pilocarpine HCl 5 mg tablet 5 mg PO QID 12/21/24 01/17/25 History lisinopril 20 mg tablet See Rx Instructions .Route 12/24/24 01/17/25 Rx .COMPLEX #90 tabs pregabalin 75 mg capsule 150 mg PO BID 01/14/25 01/17/25 History Patient hx anesthesia problems: none Family hx anesthesia problems: none Results Review: All pre-operative results and documents have been reviewed as part of the pre-operative evaluation. [facility] Past Medical History Medical History Sjogren syndrome Acid reflux Involuntary muscle contractions Rheumatoid arthritis Screening for thyroid disorder Other abnormal involuntary movements Chronic GERD Anxiety Allergies Colitis 03/2018 Depression Hematochezia Hypertension Cyst of skin Surgical History Surgical History H/O section 2003 H/O elbow surgery Right History of radical hysterectomy 09/2016 Family History Family History Mother Hypertension Cerebrovascular accident Carcinoma of colon Father Malignant neoplasm of prostate Social History Social History Social History: Caffeine-none Smoking status: Never smoker Alcohol intake: current Drinks per week: 2 Alcohol use details: occasional Substance use: never Substance use type: does not use Lack of Transportation: No Lack of Food: Never True Current Housing: I Have Housing Concerned About Future Housing: No Difficulty Paying Gas/Electric Bills: No Difficulty Paying for Meds: No Currently Unemployed: No Education: High School Diploma/GED Difficulty w/ Childcare or Family Care: No Living arrangements: alone Spiritual care concerns: No Anes - Eval Final PreProcedure Day of Procedure 01/17/25 08:41 Patient weight: obese Heart: regular rate and rhythm Lungs: clear to auscultation Airway: Mallampati scale class II Neurological: alert and oriented Last oral intake: >/= 8 hours ASA classification: III Emergent: no Anesthetic plan: proceed Anesthesia type and monitoring: general GIVS and standard monitoring Results Review: All pre-operative results and documents have been reviewed as part of the pre-operative evaluation. Informed Consent: The patient's anesthetic plan and its attendant risks and benefits were discussed with the patient/family/POA. Questions were solicited and answers provided to the satisfaction of the patient/family/POA.
[2025-01-17] MEDS: LACTATED RINGERS 1,000 ML 150 ML IV CONT (08:46)
--- NOTE | 2025-01-17 09:10 | PM.HPGS ---
History of Present Illness History of Present Illness Consent: Risks, benefits, and alternatives have been discussed and questions answered. Patient agrees to proceed with procedure. Chief complaint: Gastro-esophageal reflux disease without esophagit Narrative: Maite Mclaughlin is a 54 year old female with dysphagia, gerd on omeprazole Review of Systems Review of Systems: All systems reviewed & are unremarkable except as noted in HPI and below PMFSH Past Medical History Medical History (Updated 01/17/25 @ 09:11 by Kalin Sheth MD) Dysphagia Sjogren syndrome Acid reflux Involuntary muscle contractions Rheumatoid arthritis Screening for thyroid disorder Other abnormal involuntary movements Chronic GERD Anxiety Allergies Colitis 03/2018 Depression Hematochezia Hypertension Cyst of skin Surgical History Surgical History H/O section 2003 H/O elbow surgery Right History of radical hysterectomy 09/2016 Family History Family History Mother Hypertension Cerebrovascular accident Carcinoma of colon Father Malignant neoplasm of prostate Social History Social History Social History: Caffeine-none Smoking status: Never smoker Alcohol intake: current Drinks per week: 2 Alcohol use details: occasional Substance use: never Substance use type: does not use Lack of Transportation: No Lack of Food: Never True Current Housing: I Have Housing Concerned About Future Housing: No Difficulty Paying Gas/Electric Bills: No Difficulty Paying for Meds: No Currently Unemployed: No Education: High School Diploma/GED Difficulty w/ Childcare or Family Care: No Living arrangements: alone Spiritual care concerns: No Meds Home Medications and Allergies Home Medications ?Medication ?Instructions ?Recorded ?Confirmed ?Type solifenacin 10 mg tablet 10 mg PO DAILY 12/24/23 01/17/25 History diclofenac sodium 75 mg 75 mg PO DAILY PRN pain 10/30/24 01/17/25 History tablet,delayed release folic acid 1 mg tablet 1 mg PO DAILY 10/30/24 01/17/25 History omega 3-zin-mvn-fish oil 1,000 mg 1 cap PO DAILY 10/30/24 01/14/25 History (120 mg-180 mg) capsule (Fish Oil) paroxetine HCl 40 mg tablet 50 mg PO DAILY 10/30/24 01/17/25 History metoprolol tartrate 50 mg tablet 50 mg PO DAILY #30 tabs 11/16/24 01/17/25 Rx omeprazole 40 mg capsule,delayed 40 mg PO DAILY 12/21/24 01/17/25 History release pilocarpine HCl 5 mg tablet 5 mg PO QID 12/21/24 01/17/25 History lisinopril 20 mg tablet See Rx Instructions .Route 12/24/24 01/17/25 Rx .COMPLEX #90 tabs pregabalin 75 mg capsule 150 mg PO BID 01/14/25 01/17/25 History Allergies Allergy/AdvReac Type Severity Reaction Status Date / Time No Known Allergies Allergy Verified 01/14/25 08:37 Vital Signs Vital Signs - 24 hr 01/17/25 08:30 Temperature 97.9 F Pulse Rate 67 Respiratory Rate 18 Blood Pressure 142/92 H Pulse Oximetry 98 Oxygen Delivery Room Air Exam Const: General: comfortable and no acute distress HENMT: Face/Nose/Sinus: Normal nares present Eyes: General: appearance normal, both eyes and all related structures Resp: Auscultation: clear to auscultation bilaterally Cardio: Rate: regular rate Rhythm: regular rhythm GI: Inspection: non-distended GI Palp: Yes Soft to palpation Skin: General skin exam: normal color Extrem: General: normal to inspection Psych: Mental Status: mental status grossly normal Assessment and Plan Assessment and plan (1) Acid reflux: Code(s): K21.9 - Gastro-esophageal reflux disease without esophagitis Status: Acute Assessment and Plan: egd (2) Dysphagia: Code(s): R13.10 - Dysphagia, unspecified Status: Acute
--- NOTE | 2025-01-17 09:19 | S_PTH ---
PATIENT: Maite Mclaughlin LOC: [facility] [place]#:[id number] AGE/SX: 54/F ROOM: RE01/17/[address]: Kalin Sheth MD : 1970 BED: DIS: 01/17/2025 SPEC #: [id number] RECD: 01/17/25 09:53 STATUS: CATARINA REPrabhakar #: [id number] CARLOS: 01/17/25 09:[address]: Kalin Sheth DEPT: [facility] Surgical RECD BY: Tricia Kitchen ENTERED: 01/17/25 09:54 SP TYPE: Surgical OTHR DR: William Barger MD Tissues: A - Esophageal Biopsy B - Gastric Biopsy Procedures: Hematoxylin and Eosin Stain Gross and Microscopic Level 4
[2025-01-17 09:23] VITALS: BP 140/76; PULSE 72; RESP 16; O2SAT 92
[2025-01-17 09:33] VITALS: BP 117/66; PULSE 65; RESP 15; O2SAT 94
[2025-01-17 09:43] VITALS: BP 145/87; PULSE 71; RESP 20; O2SAT 97
== END 2025-01-17 09:55 | disposition home or self-care (01) ==
PROVIDERS: PCP Family Medicine; Referring Provider Nurse Practitioner Adult Health; Visit Provider Internal Medicine Gastroenterology
PROC: 0DJ08ZZ Inspection of Upper Intestinal Tract, Via Natural or Artificial Opening Endoscopic (ICD-10-PCS; CPT 43239; principal; 2025-01-17 09:45)
DX: K21.00 Gastro-esophageal reflux disease with esophagitis, without bleeding (principal); K31.89 Other diseases of stomach and duodenum; I10 Essential (primary) hypertension; F41.9 Anxiety disorder, unspecified; F32.A Depression, unspecified; M35.00 Sjogren syndrome, unspecified; R25.8 Other abnormal involuntary movements; M06.9 Rheumatoid arthritis, unspecified; E66.9 Obesity, unspecified; Z68.32 Body mass index [BMI] 32.0-32.9, adult; Z98.890 Other specified postprocedural states; Z87.19 Personal history of other diseases of the digestive system; Z80.0 Family history of malignant neoplasm of digestive organs; Z80.42 Family history of malignant neoplasm of prostate
CPT/HCPCS: 43239; 88305; J2003; J2704; J7120